=== PATIENT | female | born 2000 | race Caucasian/White ===

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

== ENCOUNTER → 2022-03-25 | Outpatient (CLI) | payer OTHER ==
--- NOTE | 2022-03-25 14:53 | US ---
EXAMINATION TYPE: Transabdominal DATE OF EXAM: 03/25/2022 2:37 PM COMPARISON: NONE CLINICAL HISTORY: Z36.89 ENCOUNTER FOR OTHER SPECIFIED SCR. EXAM MEASUREMENTS: GESTATIONAL AGE / DATING Physician Established: Not yet established Dates by LMP: LMP unknown Dates by First Scan: No previous this is first scan Dates by Current Scan for: (10 weeks/0 days) EDC: 10-21-22 MATERNAL ANATOMY Uterus: 9.0 x 5.6 x 7.5 Right Ovary: 1.8 x 1.1 x 1.2cm Left Ovary: 2.6 x 1.4 x 1.5cm Post CDS / Adnexa: wnl Presence of free fluid: no GESTATION / SURVEY CRL: 3.1cm (10 weeks/0 days) Yolk Sac (normal less than 6mm): 3mm Heart Rate: 176 bpm Rhythm: Normal IUP: Viable IUP Nuchal Translucency 10-14wks (normal less than 3mm): N/A Age Appropriate Anatomy Cord Insertion: Visualized Limbs: Visualized Calvarium: Visualized Date of LMP: unknown Beta HcG (if available): Not available at this time Single live intrauterine gestation. IMPRESSION: Single live intrauterine gestation with estimated gestational age of 10 weeks 0 days and estimated du e date of 10/21/2022.
== END | disposition home or self-care (01) ==
LOC: RADUSWWP 14:02
PROVIDERS: ATTEND Obstetrics & Gynecology
DX: Z36.89 Encounter for other specified antenatal screening (principal); Z3A.10 10 weeks gestation of pregnancy
CPT/HCPCS: 76801

== ENCOUNTER 2022-07-16 22:24 | Outpatient (CLI) | payer OTHER ==
[2022-07-16 23:23] LABS: Appearance,Urine Clear (Clear); Bilirubin,Urine Negative (Negative); Blood,Urine Negative (Negative); Color,Urine Yellow; Glucose,Urine (UA) Negative (Negative); Ketones,Urine Negative (Negative); Leukocyte Esterase,Urine Negative (Negative); Nitrite,Urine Negative (Negative); PH, Urine 7.5 (5.0-8.0); Protein,Urine Negative (Negative); Specific Gravity,Urine 1.014 (1.001-1.035); Urobilinogen,Urine <2.0 mg/dL (<2.0)
[2022-07-16 23:49] VITALS: BP 118/79; PULSE 120; RESP 16; TEMP 98
--- NOTE | 2022-07-31 12:43 | P.MSEPDOC ---
Presenting Problems - Arrival Data Date of Arrival on Unit: 07/16/22 Time of Arrival on Unit: 22:24 Mode of Transport: Ambulatory - Complaint OB-Reason for Admission/Chief Complaint: Pain Comment: [address] Brownlee, 26 5/7 weeks gestation, presents to L7D. with C/O sharp pains from belly button to side and down into pelvis, started this. afternoon around 1600. Patient denies bleeding or loss of fluid, + movement. Patient denies intercourse in last 24 hours Medical History - Information : 1 Para: 0 Term: 0 : 0 Abortions: Spontaneous or Elective: 0 Number of Living Children: 0 - Gestational Age Gestational Age by LESLIE (wks/days): 26 Weeks and 5 Days Review of Systems - Review of Systems Constitutional: No problems Breast: No problems ENT: No problems Cardiovascular: No problems Respiratory: No problems Gastrointestinal: No problems Genitourinary: No problems Musculoskeletal: No problems Neurological: No problems Skin: No problems Vital Signs - Temperature Temperature: 98.0 F Temperature Source: Oral - Pulse Right Sitting Pulse Rate: 120 Pulse Assessment Method: Pulse Oximetry - Respirations Respiratory Rate: 16 Oxygen Delivery Method: Room Air O2 Sat by Pulse Oximetry: 97 - Blood Pressure Right Arm Sitting Blood Pressure: 118/79 Blood Pressure Mean: 92 Blood Pressure Source: Automatic Cuff Medical Screen Scoring - Cervical Exam Membranes: Intact - Uterine Contractions Intensity: Absent Resting: Soft to palpation - Assessment - Baby A Baseline FHR: 130 Heart Rate - NICHD Category: Category I (Normal) Physician Notification - Physician Notified Physician Notified Date: 07/16/22 Physician Notified Time: 22:44 Physician: Laine Bruno New Order Received: Yes - Notification Comment Comment: Called Dr Bruno report of arrival of Erlinda García [address] Brownlee, 26. 5/7 weeks gestation, presents to L&D with C/O sharp pains from belly button to side and. down into pelvis, started around 1600. Pt states pain of 5 initially and now 8. Abdomin. is soft to palpation. Patient denies bleeding or loss of fluid, + movement. Patient denies intercourse in last 24 hours. Orders received for PO hydration, obtain. UA, remove US, Call results. Maternal Triage Index - Maternal Triage Index Presenting for scheduled procedure w/no complaint: No - Stat/Priority 1 Stat Priority 1: No - Urgent/Priority 2 Urgent Priority 2: No - Prompt/Priority 3 Prompt Priority 3: No - Non-Urgent/Priority 4 Non-Urgent Priority 4: Yes Criteria Met for Priority 4: [address] Brownlee, 26 5/7 weeks gestation, presents to L7D. with C/O sharp pains from belly button to side and down into pelvis, started this. afternoon around 1600. Patient denies bleeding or loss of fluid, + movement. Patient denies intercourse in last 24 hours Disposition - Disposition OB Disposition: Discharge to home, Written follow up instructions reviewed Discharge Date: 07/16/22 Discharge Time: 23:30 I agree with the RN Medical Screening Exam: Yes Case reviewed; plan agreed upon as documented in EMR&OBIX.: Yes Diagnosis: PAIN, UNSPECIFIED
== END 2022-07-16 23:30 | disposition home or self-care (01) ==
LOC: FBPOP 22:24
PROVIDERS: ATTEND Obstetrics & Gynecology
DX: R10.30 Lower abdominal pain, unspecified (principal); O26.892 Other specified pregnancy related conditions, second trimester; Z3A.26 26 weeks gestation of pregnancy
CPT/HCPCS: 81003; G0463; 99213

== ENCOUNTER 2022-09-20 23:16 | Outpatient (CLI) | payer OTHER ==
[2022-09-21 01:14] VITALS: BP 113/72; PULSE 112; RESP 16; TEMP 97.7
--- NOTE | 2022-09-21 07:48 | P.MSEPDOC ---
Presenting Problems - Arrival Data Date of Arrival on Unit: 09/20/22 Time of Arrival on Unit: 23:16 Mode of Transport: Wheelchair - Complaint OB-Reason for Admission/Chief Complaint: Possible Onset of Labor Comment: Pt presents to triage with c/o contx that started around 1400 and are 10-15. minutes apart. Pt is rating contx pain 6 to 7 out of 10. Pt unsure of her water broke. Medical History - Information : 1 Para: 0 Term: 0 : 0 Abortions: Spontaneous or Elective: 0 Number of Living Children: 0 - Gestational Age Gestational Age by LESLIE (wks/days): 36 Weeks and 2 Days - History Complications: GDM Review of Systems - Review of Systems Constitutional: No problems Breast: No problems ENT: No problems Cardiovascular: No problems Respiratory: No problems Gastrointestinal: No problems Genitourinary: No problems Musculoskeletal: No problems Neurological: No problems Skin: No problems Vital Signs - Temperature Temperature: 97.7 F Temperature Source: Temporal Artery Scan - Pulse Pulse Oximetery Pulse Rate: 112 Pulse Assessment Method: Pulse Oximetry - Respirations Respiratory Rate: 16 Oxygen Delivery Method: Room Air O2 Sat by Pulse Oximetry: 98 - Blood Pressure Right Arm Blood Pressure: 113/72 Blood Pressure Mean: 85 Blood Pressure Source: Automatic Cuff Medical Screen Scoring - Cervical Exam Effacement (%): 60 Station: -3 Membranes: Intact - Uterine Contractions Frequency From (mins): 5 Frequency To (mins): 6 Duration From (seconds): 60 Duration To (seconds): 80 Intensity: Mild Resting: Soft to palpation - Assessment - Baby A Baseline FHR: 125 Heart Rate - NICHD Category: Category I (Normal) NST: Reactive Physician Notification - Physician Notified Physician Notified Date: 09/21/22 Physician Notified Time: 00:50 Physician: Francy Brownlee Order Received: Yes - Notification Comment Comment: Dr. Brownlee given report on maternal status, c/o contractions every 10-15 minutes. since 1400, G/P, GA, vital signs, Cat 1 FHT, reactive NST, negative amnisure,. contraction pattern, cervical exam not changed after 1 hour. Orders to discharge pt home. with instructions for rest and hydrate, keep next scheduled appointment. Maternal Triage Index - Maternal Triage Index Presenting for scheduled procedure w/no complaint: No - Stat/Priority 1 Stat Priority 1: No - Urgent/Priority 2 Urgent Priority 2: No - Prompt/Priority 3 Prompt Priority 3: No - Non-Urgent/Priority 4 Non-Urgent Priority 4: Yes Criteria Met for Priority 4: Pt presents to triage with c/o contx that started around 1400 and are 10-15. minutes apart. Pt is rating contx pain 6 to 7 out of 10. Pt is unsure if water broke. Disposition - Disposition OB Disposition: Discharge to home, Written follow up instructions reviewed Discharge Date: 09/21/22 Discharge Time: 01:00 I agree with the RN Medical Screening Exam: Yes Case reviewed; plan agreed upon as documented in EMR&OBIX.: Yes Diagnosis: FALSE LABOR BEFORE 37 COMPLETED WEEKS OF GEST, THIRD TRI
== END 2022-09-21 01:00 | disposition home or self-care (01) ==
LOC: FBPOP 23:16
PROVIDERS: ATTEND Obstetrics & Gynecology
DX: O47.03 False labor before 37 completed weeks of gestation, third trimester (principal); Z3A.36 36 weeks gestation of pregnancy; O24.425 Gestational diabetes mellitus in childbirth, controlled by oral hypoglycemic drugs; Z79.84 Long term (current) use of oral hypoglycemic drugs
CPT/HCPCS: 59025; 84112; G0463; 99213

== ENCOUNTER 2022-09-25 13:53 | Outpatient (CLI) | payer OTHER ==
[2022-09-25 15:35] VITALS: BP 116/71; PULSE 143; RESP 16; TEMP 97.4
--- NOTE | 2022-09-25 17:36 | P.MSEPDOC ---
Presenting Problems - Arrival Data Date of Arrival on Unit: 09/25/22 Time of Arrival on Unit: 13:53 Mode of Transport: Wheelchair - Complaint OB-Reason for Admission/Chief Complaint: Possible Onset of Labor Medical History - Information : 1 Para: 0 Term: 0 : 0 Abortions: Spontaneous or Elective: 0 Number of Living Children: 0 - Gestational Age Gestational Age by LESLIE (wks/days): 36 Weeks and 6 Days - History Complications: GDM Review of Systems - Review of Systems Constitutional: No problems Breast: No problems ENT: No problems Cardiovascular: No problems Respiratory: No problems Gastrointestinal: No problems Genitourinary: No problems Musculoskeletal: No problems Neurological: No problems Skin: No problems Vital Signs - Temperature Temperature: 97.4 F Temperature Source: Temporal Artery Scan - Pulse Pulse Oximetery Pulse Rate: 143 Pulse Assessment Method: Pulse Oximetry - Respirations Respiratory Rate: 16 Oxygen Delivery Method: Room Air O2 Sat by Pulse Oximetry: 99 - Blood Pressure Right Arm Blood Pressure: 116/71 Blood Pressure Mean: 86 Blood Pressure Source: Automatic Cuff Medical Screen Scoring - Cervical Exam Dilation (cm): 0 Membranes: Intact - Uterine Contractions Intensity: Mild Resting: Soft to palpation - Assessment - Baby A Baseline FHR: 135 Heart Rate - NICHD Category: Category I (Normal) NST: Reactive Physician Notification - Physician Notified Physician Notified Date: 09/25/22 Physician Notified Time: 15:17 Physician: Francy Brownlee Order Received: Yes (d/c) Maternal Triage Index - Prompt/Priority 3 Prompt Priority 3: Yes Criteria Met for Priority 3: reactive nst, irregular contractions, vag exam closed/thick/high. maternal pulse 143 on admission, 112-119 after being in traige for an hour. Disposition - Disposition OB Disposition: Discharge to home Discharge Date: 09/25/22 Discharge Time: 15:29 I agree with the RN Medical Screening Exam: Yes Case reviewed; plan agreed upon as documented in EMR&OBIX.: Yes Diagnosis: FALSE LABOR BEFORE 37 COMPLETED WEEKS OF GEST, THIRD TRI
== END 2022-09-25 15:29 | disposition home or self-care (01) ==
LOC: FBPOP 13:53
PROVIDERS: ATTEND Obstetrics & Gynecology
DX: O47.03 False labor before 37 completed weeks of gestation, third trimester (principal); O24.419 Gestational diabetes mellitus in pregnancy, unspecified control; Z3A.36 36 weeks gestation of pregnancy; Z79.84 Long term (current) use of oral hypoglycemic drugs
CPT/HCPCS: 59025; G0463; 99213

== ENCOUNTER 2022-09-27 20:50 | Outpatient (CLI) | payer OTHER ==
[2022-09-27 22:37] VITALS: BP 122/76; PULSE 115; RESP 16; TEMP 96.8
--- NOTE | 2022-11-09 11:17 | P.MSEPDOC ---
Presenting Problems - Arrival Data Date of Arrival on Unit: 09/27/22 Time of Arrival on Unit: 20:50 Mode of Transport: Wheelchair - Complaint OB-Reason for Admission/Chief Complaint: Possible Onset of Labor Comment: Patient presents to triage with complaints of lower abdominal tightness and back pain. Medical History - Information : 1 Para: 0 Term: 0 : 0 Abortions: Spontaneous or Elective: 0 Number of Living Children: 0 - Gestational Age Gestational Age by LESLIE (wks/days): 37 Weeks and 1 Days - History Complications: GDM Review of Systems - Review of Systems Constitutional: No problems Breast: No problems ENT: No problems Cardiovascular: No problems Respiratory: No problems Gastrointestinal: No problems Genitourinary: No problems Musculoskeletal: No problems Neurological: No problems Skin: No problems Vital Signs - Temperature Temperature: 96.8 F Temperature Source: Temporal Artery Scan - Pulse Pulse Oximetery Pulse Rate: 115 Pulse Assessment Method: Pulse Oximetry - Respirations Respiratory Rate: 16 Oxygen Delivery Method: Room Air O2 Sat by Pulse Oximetry: 97 - Blood Pressure Right Arm Blood Pressure: 122/76 Blood Pressure Mean: 91 Blood Pressure Source: Automatic Cuff Medical Screen Scoring - Cervical Exam Dilation (cm): 0 Membranes: Intact - Assessment - Baby A Baseline FHR: 150 Heart Rate - NICHD Category: Category I (Normal) NST: Reactive Physician Notification - Physician Notified Physician Notified Date: 09/27/22 Physician Notified Time: 21:58 Physician: Laine Bruno Maternal Triage Index - Maternal Triage Index Presenting for scheduled procedure w/no complaint: No - Stat/Priority 1 Stat Priority 1: No - Urgent/Priority 2 Urgent Priority 2: No - Prompt/Priority 3 Prompt Priority 3: No - Non-Urgent/Priority 4 Non-Urgent Priority 4: Yes Criteria Met for Priority 4: Patient presents to triage with complaints of lower abdominal tightness and back pain. Disposition - Disposition OB Disposition: Discharge to home I agree with the RN Medical Screening Exam: Yes Case reviewed; plan agreed upon as documented in EMR&OBIX.: Yes Diagnosis: LOW BACK PAIN, UNSPECIFIED
== END 2022-09-27 22:37 ==
LOC: FBPOP 20:50
PROVIDERS: ATTEND Obstetrics & Gynecology
DX: O26.893 Other specified pregnancy related conditions, third trimester (principal); O24.113 Pre-existing type 2 diabetes mellitus, in pregnancy, third trimester; M54.50 Low back pain, unspecified; Z3A.37 37 weeks gestation of pregnancy; Z91.048 Other nonmedicinal substance allergy status; Z79.84 Long term (current) use of oral hypoglycemic drugs
CPT/HCPCS: 59025; 84112; G0463; 99213

== ENCOUNTER 2022-09-28 19:44 | Outpatient (CLI) | payer OTHER ==
[2022-09-28 20:06] LABS: Glucose,Whole Blood 95 mg/dL (70-110)
[2022-09-28 20:45] VITALS: BP 116/69; PULSE 112; RESP 16; TEMP 97.2
--- NOTE | 2022-11-09 11:18 | P.MSEPDOC ---
Presenting Problems - Arrival Data Date of Arrival on Unit: 09/28/22 Time of Arrival on Unit: 19:44 Mode of Transport: Ambulatory - Complaint OB-Reason for Admission/Chief Complaint: Possible Onset of Labor Comment: pt. present to tirage due to contractions, pt. states they have been going. on all day but increased at 5:30 and then 7:30 for and hour they were 4- 5min apart pt. rating pain 8/10 when they come Medical History - Information : 1 Para: 0 Term: 0 : 0 Abortions: Spontaneous or Elective: 0 Number of Living Children: 0 - Gestational Age Gestational Age by LESLIE (wks/days): 37 Weeks and 2 Days - History Complications: GDM Review of Systems - Review of Systems Constitutional: No problems Breast: No problems ENT: No problems Cardiovascular: No problems Respiratory: No problems Gastrointestinal: No problems Genitourinary: No problems Musculoskeletal: No problems Neurological: No problems Skin: No problems Vital Signs - Temperature Temperature: 97.2 F Temperature Source: Temporal Artery Scan - Pulse Pulse Oximetery Pulse Rate: 112 Pulse Assessment Method: Pulse Oximetry - Respirations Respiratory Rate: 16 Oxygen Delivery Method: Room Air O2 Sat by Pulse Oximetry: 98 - Blood Pressure Right Arm Blood Pressure: 116/69 Blood Pressure Mean: 84 Blood Pressure Source: Automatic Cuff Medical Screen Scoring - Cervical Exam Dilation (cm): 0 - Uterine Contractions Intensity: Mild Resting: Soft to palpation - Assessment - Baby A Baseline FHR: 135 Heart Rate - NICHD Category: Category I (Normal) NST: Reactive Maternal Triage Index - Maternal Triage Index Presenting for scheduled procedure w/no complaint: No - Stat/Priority 1 Stat Priority 1: No - Urgent/Priority 2 Urgent Priority 2: No - Prompt/Priority 3 Prompt Priority 3: No - Non-Urgent/Priority 4 Non-Urgent Priority 4: Yes Criteria Met for Priority 4: 37.2, cervix closed, pt. not feeling any contractions at this time requesting to be discharge home Disposition - Disposition OB Disposition: Discharge to home Discharge Date: 09/28/22 Discharge Time: 20:37 I agree with the RN Medical Screening Exam: Yes Case reviewed; plan agreed upon as documented in EMR&OBIX.: Yes Diagnosis: PRIMARY INADEQUATE CONTRACTIONS
== END 2022-09-28 20:37 | disposition home or self-care (01) ==
LOC: FBPOP 19:44
PROVIDERS: ATTEND Obstetrics & Gynecology
DX: O26.893 Other specified pregnancy related conditions, third trimester (principal); O24.113 Pre-existing type 2 diabetes mellitus, in pregnancy, third trimester; O62.0 Primary inadequate contractions; Z3A.37 37 weeks gestation of pregnancy; Z91.048 Other nonmedicinal substance allergy status; Z79.84 Long term (current) use of oral hypoglycemic drugs
CPT/HCPCS: 59025; 84112; G0463; 99213

== ENCOUNTER → 2022-10-04 | Outpatient (CLI) | payer OTHER ==
[2022-10-05 00:35] VITALS: BP 117/72; PULSE 118; RESP 16; TEMP 98
--- NOTE | 2022-10-05 07:23 | P.MSEPDOC ---
Presenting Problems - Arrival Data Date of Arrival on Unit: 10/04/22 Time of Arrival on Unit: 22:52 Mode of Transport: Wheelchair - Complaint OB-Reason for Admission/Chief Complaint: Possible Onset of Labor, Rule Out SROM, Decreased Movement Comment: Patient of Dr. Brownlee presents to triage with. contractions 5min apart, and decreased . movement. She is a GA 38.1, LESLIE 10/17/22. Unsure. of fluid leaking, denies bleeding, states she hasn't. been feeling baby move much today. Patient. complications include gestational diabetes and sees. MFM as well as weekly Dr. visits with Dr. Brownlee. Medical History - Information : 1 Para: 0 Term: 0 : 0 Abortions: Spontaneous or Elective: 0 Number of Living Children: 0 - Gestational Age Gestational Age by LESLIE (wks/days): 38 Weeks and 2 Days - History Complications: GDM Comment: Takes Metformin for GDM, checks blood glucose 4x's day. Review of Systems - Review of Systems Constitutional: No problems Breast: No problems ENT: No problems Cardiovascular: No problems Respiratory: No problems Gastrointestinal: No problems Genitourinary: No problems Musculoskeletal: No problems Neurological: No problems Skin: No problems Vital Signs - Temperature Temperature: 98 F Temperature Source: Temporal Artery Scan - Pulse Pulse Oximetery Pulse Rate: 118 Pulse Assessment Method: Pulse Oximetry - Respirations Respiratory Rate: 16 Oxygen Delivery Method: Room Air O2 Sat by Pulse Oximetry: 98 - Blood Pressure Right Arm Blood Pressure: 117/72 Blood Pressure Mean: 87 Blood Pressure Source: Automatic Cuff Medical Screen Scoring - Cervical Exam Dilation (cm): 0 Effacement (%): 0 Station: -2 Membranes: Intact - Uterine Contractions Frequency From (mins): 5 Frequency To (mins): 9 Duration From (seconds): 70 Duration To (seconds): 90 Intensity: Mild Resting: Soft to palpation - Assessment - Baby A Baseline FHR: 120 Heart Rate - NICHD Category: Category I (Normal) NST: Reactive Physician Notification - Physician Notified Physician Notified Date: 10/05/22 Physician Notified Time: 00:14 Physician: Silvano Pacheco New Order Received: Yes - Notification Comment Comment: Paged and had call back from Dr. Pacheco. Patient of Dr. Brownlee, , LESLIE 10/17/22, GA 38.1. Amnisure negative, Cervix closed/thick/-2. NST. reactive. Contractions 5-9 min. Orders to send home. with discharge instructions. Maternal Triage Index - Maternal Triage Index Presenting for scheduled procedure w/no complaint: No - Stat/Priority 1 Stat Priority 1: No - Urgent/Priority 2 Urgent Priority 2: No - Prompt/Priority 3 Prompt Priority 3: No - Non-Urgent/Priority 4 Non-Urgent Priority 4: Yes Criteria Met for Priority 4: >37 weeks, early labor signs of contractions, possible SROM, common discomforts of and decreased movement. Disposition - Disposition OB Disposition: Discharge to home Discharge Date: 10/05/22 Discharge Time: 00:15 I agree with the RN Medical Screening Exam: Yes Case reviewed; plan agreed upon as documented in EMR&OBIX.: Yes Diagnosis: FALSE LABOR AT OR AFTER 37 COMPLETED WEEKS OF GESTATION (Patient presents to labor and delivery with complaints of contractions and decreased movement. Patient's heart tones are category 1. Cervix remains closed and thick. Patient is feeling movement while on the unit. This time there is no evidence of labor, and no evidence of maternal or compromise. Plan is to discharge home follow up with Dr. Burleson as scheduled)
== END ==
LOC: FBPOP 22:52
PROVIDERS: ATTEND Obstetrics & Gynecology
DX: O47.1 False labor at or after 37 completed weeks of gestation (principal); O24.415 Gestational diabetes mellitus in pregnancy, controlled by oral hypoglycemic drugs; Z3A.38 38 weeks gestation of pregnancy; Z91.048 Other nonmedicinal substance allergy status; Z79.84 Long term (current) use of oral hypoglycemic drugs
CPT/HCPCS: 59025; 84112; G0463; 99213

== ENCOUNTER 2022-10-06 01:57 | Inpatient (IN) | payer OTHER ==
[2022-10-06] MEDS ORDERED: CARBOPROST TROMETHAMINE 250 MCG/ML 1 ML AMP IM PRN ×2 (02:16→17:55)
[2022-10-06] MEDS ORDERED: METHYLERGONOVINE 0.2 MG/ML 1 ML AMP IM PRN ×2 (02:16→17:55)
[2022-10-06] MEDS ORDERED: LIDOCAINE 0.5% (PF) 5 MG/ML (50 ML SDV) SQ PRN (02:16)
[2022-10-06] MEDS ORDERED: TRANEXAMIC ACID IN NACL,ISO-OS 1,000 MG in EMPTY BAG 1 BAG IV PRN ×2 (02:16→17:55)
[2022-10-06] MEDS ORDERED: TERBUTALINE 1 MG/ML VIAL SQ PRN (02:16)
[2022-10-06] MEDS ORDERED: OXYTOCIN 10 UNIT/ML 1 ML VIAL IM PRN ×2 (02:16→17:55)
[2022-10-06] MEDS ORDERED: miSOPROStoL 200 MCG TAB PO PRN ×2 (02:16→17:55)
[2022-10-06] MEDS ORDERED: OXYTOCIN 30 UNITS/500 ML NS 30 UNIT in SALINE 1 500ML.BAG IV SCH ×2 (02:30→19:30)
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
[2022-10-06 02:33] LABS: Glucose,Whole Blood 102 mg/dL (70-110)
[2022-10-06 03:02] LABS: Anisocytosis Slight; Basophils % (A) 0 %; Eosinophils # (A) 0.2 k/uL (0-0.7); Eosinophils % (A) 2 %; HGB 7.4 gm/dL (11.4-16.0); Hypochromasia Marked; Lymphocytes # (A) 2.3 k/uL (1.0-4.8); Lymphocytes % (A) 21 %; MCH 19.7 pg (25.0-35.0); MCHC 30.8 g/dL (31.0-37.0); Mean Platelet Volume 8.3; Microcytosis Marked; Monocytes # (A) 0.8 k/uL (0-1.0); Monocytes % (A) 7 %; Neutrophils # (A) 7.5 k/uL (1.3-7.7); Neutrophils % (A) 68 %; Platelet Count 365 k/uL (150-450); Poikilocytosis Marked; RBC 3.75 m/uL (3.80-5.40); RDW 18.1 % (11.5-15.5); WBC 11.1 k/uL (4.0-11.0)
[2022-10-06] MEDS: LACTATED RINGERS 1,000 ML IV SCH ×3 (03:33→13:49)
[2022-10-06 08:16] LABS: Glucose,Whole Blood 89 mg/dL (70-110)
[2022-10-06] MEDS ORDERED: BUTORPHANOL 2 MG/ML 1 ML VIAL IV PRN ×2 (09:45→10:08)
[2022-10-06] MEDS ORDERED: BUTORPHANOL 1 MG/ML 1 ML VIAL IV PRN ×2 (10:09→10:11)
[2022-10-06] MEDS ORDERED: SODIUM CHLORIDE 0.9% 100 ML BAG ONE (13:34)
[2022-10-06] MEDS ORDERED: ROPIVACAINE 5 MG/ML 20 ML AMPULE ONE (13:34)
[2022-10-06] MEDS ORDERED: fentaNYL (PF) 50 MCG/ML 5 ML AMP ONE (13:34)
[2022-10-06 13:58] LABS: Glucose,Whole Blood 86 mg/dL (70-110)
[2022-10-06] MEDS ORDERED: AMPICILLIN 2,000 MG in SODIUM CHLORIDE 0.9% 100 ML IVPB ONE (14:00)
[2022-10-06] MEDS ORDERED: CITRIC ACID-SODIUM CITRATE 15 ML CUP PO ONE (17:55)
--- NOTE | 2022-10-06 17:59 | P.PN ---
Progress Note - Text Progress Note Date: 10/06/22 Patient's cervix is 3 cm dilated. heart tones are category 1. Pitocin is now over 30 milliunits and despite 16 hours of labor augmentation she is not made any significant change throughout the day. I discussed with the patient and her family in regards to continue with this induction versus delivery by section. Patient at this time is requesting section. I believe this is appropriate given the prolonged labor and rupture without significant progress. I did discuss the benefits and risks of this procedure including risks of infection, bleeding, possible injury bowel, bladder, vessels, and/or other organs. All the patient's questions are answered and a written consent is obtained.
[2022-10-06] MEDS ORDERED: AMPICILLIN 1,000 MG in SODIUM CHLORIDE 0.9% 50 ML IVPB SCH (18:00)
[2022-10-06] MEDS ORDERED: OXYTOCIN 30 UNITS/500 ML NS BAG IV ONE (18:21)
[2022-10-06] MEDS ORDERED: MORPHINE SULFATE (PF) 0.3 MG/0.3 ML SYR ONE (18:21)
[2022-10-06] MEDS ORDERED: ONDANSETRON 4 MG/2 ML VIAL ONE (18:21)
[2022-10-06] MEDS ORDERED: OXYTOCIN 10 UNIT/ML 1 ML VIAL ONE (18:21)
[2022-10-06] MEDS ORDERED: NALBUPHINE 10 MG/ML (10 ML MDV) ONE (18:21)
[2022-10-06] MEDS ORDERED: fentaNYL (PF) 50 MCG/ML 2 ML AMP ONE (18:21)
[2022-10-06] MEDS ORDERED: KETOROLAC 15 MG/ML 1 ML VIAL ONE (18:21)
[2022-10-06] MEDS ORDERED: METHYLERGONOVINE 0.2 MG/ML 1 ML AMP ONE (18:21)
[2022-10-06] MEDS ORDERED: diphenhydrAMINE 25 MG CAP PO PRN (19:29)
[2022-10-06] MEDS ORDERED: LANOLIN CREAM 5 GM TUBE TOPICAL PRN (19:29)
[2022-10-06] MEDS ORDERED: METOCLOPRAMIDE 5 MG/ML 2 ML VIAL IVP PRN (19:29)
[2022-10-06] MEDS ORDERED: SIMETHICONE 80 MG CHEWABLE PO PRN (19:29)
[2022-10-06] MEDS ORDERED: ONDANSETRON 4 MG/2 ML VIAL IVP PRN (19:29)
[2022-10-06] MEDS ORDERED: diphenhydrAMINE 50 MG/ML 1 ML VIAL IVP PRN (19:29)
[2022-10-06] MEDS ORDERED: ZOLPIDEM 5 MG TAB PO PRN (19:29)
[2022-10-06] MEDS ORDERED: NALOXONE 0.4 MG/ML 1 ML VIAL IV PRN (19:29)
--- NOTE | 2022-10-06 20:06 | P.OP ---
Date of Procedure: 10/06/22 Preoperative Diagnosis: #1: 38-3/7 week intrauterine . #2: Premature rupture membranes #3: Failure to progress in labor #4: Chronic anemia (severe) Postoperative Diagnosis: #1: Same. #2: Occiput transverse presentation Procedure(s) Performed: Primary low transverse section Anesthesia: epidural Surgeon: Silvano Pacheco Savings Counselor #1: Erick Gonzalez Estimated Blood Loss (ml): 1,400 Pathology: other (Placenta) Condition: stable Disposition: floor Indications for Procedure: Please see dictated H&P for intimate details of this patient's admission. In brief summary this is a 21-year-old 1 para 0 female estimated gestational age 38-3/7 weeks who presents to labor and delivery with complaints of leaking of fluid found to have gross rupture membranes and no cervical dilation. Patient has Pitocin induction of labor and despite approximately 16 hours of labor in over 30 milliunits of Pitocin she does not progress beyond 3 cm dilated. I did discuss options with the patient including continued labor versus delivery by section. After patient centered huddle, it was our clinical recommendation proceed with section. I did discuss the procedure and risks with the patient including risks of infection, bleeding, possible injury bowel, bladder, vessels, and/or other organs. We also discussed risk of DVT and pulmonary embolism. All the patient's questions are answered and a written consent was obtained. Operative Findings: This is a vigorous viable female infant Apgars 9 and 9 delivery time is 1834 hrs. Infant grossly appeared normal. The uterus, tubes, ovaries appear normal as well. Description of Procedure: This patient has a Mora catheter placed to straight drain. She is subsequently taken to the operating room where the epidural is dosed up for sufficient level of surgery. With an adequate level of anesthesia the appropriate timeout is done. She has abdominal prep and drape. Scalpels and taken Pfannenstiel skin incision is then made. A second scalpel is taken down the fascia and the fascia scored with scalpel. Fascial incision extended bilaterally using the Lawrence scissors. Fascia is dissected sharply off the rectus muscles. Rectus muscles are the peritoneum identified and entered sharply. Peritoneal incision extended superior and inferior without difficulty. Bladder blade is then placed. Bladder peritoneum was taken sharply off the lower uterine segment. Scalpel is then taken and a low transverse uterine incision is then made. Using a hemostat I enter the uterine cavity bluntly was a loss of clear f luid. The uterine incision extended bluntly. The 's head is then gently guided through the incision with fundal pressure. Mouth and nares are bulb suctioned. There is no evidence of a nuchal cord. The infant's head is occiput transverse presentation. With more fundal pressure with delivery the rest of this infant's body. This is a vigorous viable female infant Apgars 9 and 9 delivery time is 1834 hrs. After delivery of the the umbilical cord is doubly clamped and cut. The placenta is then manually extracted intact. All tissue is removed from the uterus. Uterus is then externalized. There is a brisk bleeding from the left side of the incision and immediately a Fung clamp was placed at this area. The rest the incision is also demarcated with Fung clamps. The the bleeding on the left side is controlled with 0 Vicryl running locked stitches. Rest of the incision is then closed using 0 Vicryl running locked fashion 2 layers. This time good hemostasis is noted. Bladder peritoneum was then reapproximated using a 3-0 Vicryl. Excess fluid is removed from the abdomen and pelvis. Uterus, tubes, ovaries appear normal for term gestation. Uterus placed back into the abdomen. The parietal peritoneum was then identified and closed using 0 Vicryl running fashion. Rectus muscles reapproximated in 0 Vicryl interrupted fashion. Fascia is then closed using 0 PDS. Subcutaneous tissues and closed using a 3-0 Vicryl. Skin is and closed using janak. All counts are correct 3. There are no complications. Estimated blood loss was 1400 mL due to the bleeding from the left side and patient did have some mild atony therefore was given a dose of Methergine and 10 units of Pitocin IV. Of note patient's hemoglobin prior to surgery was 7.4 therefore we'll watch her closely and repeat a CBC in the morning.
[2022-10-06] MEDS: SENNOSIDES-DOCUSATE SODIUM 1 EACH TAB PO SCH (20:54)
[2022-10-06] MEDS: ACETAMINOPHEN TAB 500 MG TAB PO SCH (21:34)
[2022-10-06] MEDS: METHYLERGONOVINE 0.2 MG TAB PO SCH (22:55)
[2022-10-07] MEDS: LACTATED RINGERS 1,000 ML IV SCH ×3 (00:39→14:00)
[2022-10-07] MEDS: IBUPROFEN 600 MG TAB PO SCH ×4 (00:40→20:12)
[2022-10-07] MEDS: KETOROLAC 15 MG/ML 1 ML VIAL IVP SCH ×3 (02:11→19:31)
[2022-10-07] MEDS: ACETAMINOPHEN TAB 500 MG TAB PO SCH ×3 (06:29→16:25)
[2022-10-07] MEDS: FERROUS SULFATE 325 MG TAB PO SCH ×2 (06:29→17:42)
[2022-10-07] MEDS: METHYLERGONOVINE 0.2 MG TAB PO SCH ×2 (06:30→16:05)
[2022-10-07] MEDS: SENNOSIDES-DOCUSATE SODIUM 1 EACH TAB PO SCH ×2 (07:32→20:13)
[2022-10-07 08:23] LABS: Anisocytosis Slight; Basophils % (A) 0 %; Eosinophils # (A) 0.1 k/uL (0-0.7); Eosinophils % (A) 0 %; Hypochromasia Marked; Lymphocytes # (A) 1.7 k/uL (1.0-4.8); Lymphocytes % (A) 12 %; MCH 18.6 pg (25.0-35.0); MCV 63.9 fL (80.0-100.0); Microcytosis Marked; Monocytes # (A) 1.1 k/uL (0-1.0); Monocytes % (A) 8 %; Neutrophils # (A) 10.9 k/uL (1.3-7.7); Neutrophils % (A) 78 %; Platelet Count 246 k/uL (150-450); Poikilocytosis Marked; RBC 2.66 m/uL (3.80-5.40); RDW 18.3 % (11.5-15.5); WBC 14.1 k/uL (4.0-11.0)
[2022-10-07 08:24] LABS: HGB 4.9 gm/dL (11.4-16.0)
--- NOTE | 2022-10-07 08:51 | P.PNOBGPC ---
Subjective - Subjective Principal diagnosis: Status post primary section postoperative day #1 Interval history: Patient is doing okay. She has not tried ambulate yet. She is feeling some gurgling but no flatus yet. Her pain is fairly well controlled at this time. She denies any current shortness of breath or dizziness. She does notice some ringing in her ears with movement. Patient reports: Reports appetite normal, Reports voiding normally, Reports pain well controlled, Denies ambulating normally : doing well Objective - Vital Signs Latest vital signs: Vital Signs Temp Pulse Resp BP Pulse Ox 10/07/22 08:00 98.4 F 116 H 16 109/75 97 10/07/22 04:00 98.8 F 112 H 16 110/72 10/07/22 00:00 98.4 F 112 H 16 128/69 100 10/06/22 21:09 98.8 F 117 H 16 112/77 97 10/06/22 20:39 98 16 118/85 97 10/06/22 20:09 105 H 16 124/86 98 10/06/22 19:54 107 H 16 119/84 98 10/06/22 19:39 98.2 F 100 16 121/81 98 10/06/22 19:24 124 H 16 99 10/06/22 19:09 125 H 16 130/80 100 Intake and Output 10/06/22 10/07/22 10/07/22 22:59 06:59 14:59 Intake Total 800 Output Total 375 150 Balance -375 650 Intake: IV 600 Oral 200 Output: Urine 375 150 Uretheral (Mora) 250 150 Other: Voiding Method Indwelling Catheter - Exam Extremities: Present: normal. Absent: tenderness Abdomen: Present: normal appearance, soft (Positive bowel sounds 4). Absent: distention, tenderness Incision: Present: normal, dry, intact. Absent: erythematous Uterus: Present: normal, firm. Absent: tenderness - Labs Labs: Abnormal Lab Results - Last 24 Hours (Table) 10/06/22 10/07/22 Range/Units 02:45 07:45 WBC 14.1 H (4.0-11.0) k/uL RBC 2.66 L (3.80-5.40) m/uL Hgb 4.9 L* D (11.4-16.0) gm/dL Hct 17.0 L* (34.0-46.0) % MCV 63.9 L (80.0-100.0) fL MCH 18.6 L (25.0-35.0) pg MCHC 29.0 L (31.0-37.0) g/dL RDW 18.3 H (11.5-15.5) % Neutrophils # 10.9 H (1.3-7.7) k/uL Monocytes # 1.1 H (0-1.0) k/uL Crossmatch See Detail Assessment and Plan Assessment: Status post primary low transverse section postoperative day #1 Chronic anemia with acute blood loss anemia Plan: Will transfuse 2 units of blood this morning. Patient was counseled regarding blood transfusion and the need for this. Patient states she was on iron prior to but stopped taking them when she did find out she was . Will recheck CBC a few hours after the last unit. Will also repeat again in the morning. Will not ambulate without assistance.
[2022-10-07 16:37] LABS: Anisocytosis Moderate; HCT 25.9 % (34.0-46.0); Hypochromasia Marked; MCH 23.3 pg (25.0-35.0); MCHC 32.7 g/dL (31.0-37.0); Mean Platelet Volume 9.6; Microcytosis Marked; Platelet Count 266 k/uL (150-450); Poikilocytosis Marked; RBC 3.65 m/uL (3.80-5.40); RDW 21.6 % (11.5-15.5)
[2022-10-07 16:54] LABS: HGB 8.5 gm/dL (11.4-16.0)
[2022-10-07 16:55] LABS: MCV 71.1 fL (80.0-100.0)
[2022-10-07 17:14] LABS: Lymphocytes # (M) 1.49 k/uL (1.0-4.8); Metamyelocytes # (M) 0.17 k/uL (0); Metamyelocytes % 1 %; Monocytes # (M) 0.66 k/uL (0-1.0); Neutrophils # (M) 14.19 k/uL (1.3-7.7); Neutrophils % (M) 86 %; Nucleated Red Blood Cells 4 /100 WBC (0-0); Total Cells Counted 100; WBC 16.5 k/uL (4.0-11.0)
[2022-10-08 01:37] VITALS: RESP 16
[2022-10-08] MEDS: IBUPROFEN 600 MG TAB PO SCH ×2 (02:04→07:56)
[2022-10-08] MEDS: ACETAMINOPHEN TAB 500 MG TAB PO SCH ×3 (03:07→10:30)
[2022-10-08] MEDS: KETOROLAC 15 MG/ML 1 ML VIAL IVP SCH ×2 (03:08→07:13)
--- NOTE | 2022-10-08 06:35 | P.MSEPDOC ---
Presenting Problems - Arrival Data Date of Arrival on Unit: 10/06/22 Time of Arrival on Unit: 01:57 Mode of Transport: Wheelchair - Complaint OB-Reason for Admission/Chief Complaint: Possible Onset of Labor, Rule Out SROM Comment: pt presents to tr with c/o SROM clear fluid at about 0130. pt states she's GDM,. on metformin once a day. last accu check was after dinner, and it was 116 Medical History - Information : 1 Para: 0 Term: 0 : 0 Abortions: Spontaneous or Elective: 0 Number of Living Children: 0 - Gestational Age Gestational Age by LESLIE (wks/days): 38 Weeks and 3 Days - History Complications: GDM Review of Systems - Review of Systems Constitutional: No problems Breast: No problems ENT: No problems Cardiovascular: No problems Respiratory: No problems Gastrointestinal: No problems Genitourinary: No problems Musculoskeletal: No problems Neurological: No problems Skin: No problems Vital Signs - Temperature Temperature: 97.9 F Temperature Source: Oral - Pulse Pulse Oximetery Pulse Rate: 93 Pulse Assessment Method: Pulse Oximetry - Respirations Respiratory Rate: 16 Oxygen Delivery Method: Room Air O2 Sat by Pulse Oximetry: 94 - Blood Pressure Right Arm Blood Pressure: 98/65 Blood Pressure Mean: 76 Blood Pressure Source: Automatic Cuff Medical Screen Scoring - Cervical Exam Dilation (cm): 0 Effacement (%): 0 Station: -2 Membranes: Ruptured - Uterine Contractions Intensity: Mild Resting: Soft to palpation - Assessment - Baby A Baseline FHR: 134 Heart Rate - NICHD Category: Category I (Normal) NST: Reactive Physician Notification - Physician Notified New Order Received: Yes - Notification Comment Comment: orders received to obtain cbc in am Maternal Triage Index - Maternal Triage Index Presenting for scheduled procedure w/no complaint: No - Stat/Priority 1 Stat Priority 1: No - Urgent/Priority 2 Urgent Priority 2: No - Prompt/Priority 3 Prompt Priority 3: Yes Criteria Met for Priority 3: >34 weeks SROM Disposition - Disposition OB Disposition: Admit, LDRP Suite Transferred to:: Suite 11 I agree with the RN Medical Screening Exam: Yes Case reviewed; plan agreed upon as documented in EMR&OBIX.: Yes Diagnosis: ENCOUNTER FOR FULL-TERM UNCOMPLICATED DELIVERY
--- NOTE | 2022-10-08 06:49 | P.PN ---
Progress Note - Text Progress Note Date: 10/08/22 Postoperative day 2 status post section under spinal anesthesia, and i ntrathecal morphine given for postoperative analgesia, patient doing well, there is no anesthesia related complications, Patient had no headache, vital signs stable , Assessment and plan= postop day 2 status post , doing well there is no anesthesia related complication.
[2022-10-08 07:06] LABS: Anisocytosis Moderate; HCT 23.5 % (34.0-46.0); HGB 7.5 gm/dL (11.4-16.0); Hypochromasia Marked; MCH 22.6 pg (25.0-35.0); MCHC 31.9 g/dL (31.0-37.0); Mean Platelet Volume 9.1; Microcytosis Marked; Platelet Count 230 k/uL (150-450); Poikilocytosis Marked; RBC 3.31 m/uL (3.80-5.40); RDW 21.8 % (11.5-15.5); WBC 15.7 k/uL (4.0-11.0)
[2022-10-08 07:53] LABS: Eosinophils # (M) 0.16 k/uL (0-0.7); Lymphocytes # (M) 2.67 k/uL (1.0-4.8); Monocytes # (M) 0.63 k/uL (0-1.0); Neutrophils # (M) 12.25 k/uL (1.3-7.7); Neutrophils % (M) 78 %; Nucleated Red Blood Cells 0 /100 WBC (0-0); Total Cells Counted 100
[2022-10-08 07:54] VITALS: BP 109/75; PULSE 88; TEMP 97.8
[2022-10-08] MEDS: FERROUS SULFATE 325 MG TAB PO SCH (07:56)
[2022-10-08 07:59] LABS: Polychromasia Present
[2022-10-08] MEDS: SENNOSIDES-DOCUSATE SODIUM 1 EACH TAB PO SCH (08:02)
--- NOTE | 2022-10-08 08:48 | P.DS ---
Providers Date of admission: 10/06/22 02:14 Expected date of discharge: 10/08/22 Attending physician: Francy Brownlee Primary care physician: Stated None Hospital Course: This is a 21-year-old female 1 para 0 at 38-3/7 weeks who presented with spontaneous rupture of membranes. She did not make progress for over 17 hours and therefore underwent a primary low transverse section on 10/06/2022. She did have increased bleeding from a blood vessel on the side of her uterus during surgery and did have a large amount of blood loss during surgery. , her hemoglobin did drop to 4.9. She was given 2 units of blood and currently is a 7.5. Her starting hemoglobin was only 7.4. She did have a history of gestational diabetes that was fairly well controlled. Post operatively on postoperative day #1, she was feeling ringing in her ears and some dizziness. She did receive 2 units of blood and now is ambulating and has passed flatus and bowel movement. She is breast-feeding. Pain is fairly well controlled right now. Vital signs are stable. Abdomen is soft with positive bowel sounds 4. Incision is clean dry and intact with janak in place. Extremities show negative Homans. Impression is status post primary low transverse section postoperative day #2, acute blood loss anemia in a background of chronic anemia, gestational diabetes. Plan is to discharge home today. Routine postoperative and instructions are given. She will be given a prescription for ibuprofen 600 mg every 6 hours as needed for pain. She will alternate with Tylenol as needed. She will also be given a few oxycodone to use as needed for severe pain. She has been counseled regarding opioid use and has signed a consent form. She will continue seeing her counselor for anxiety issues. She is currently on no medication for this. She is advised to call the office if she has any further questions or concerns prior to her appointment time. Procedures: Oxytocin augmentation of labor Primary low transverse section for delivery of a viable female on 10/06/2022 Patient Condition at Discharge: Stable Plan - Discharge Summary New Discharge Prescriptions: New Ibuprofen [Motrin] 600 mg PO Q6H #60 tab oxyCODONE HCL [OxyIR] 5 mg PO Q6HR PRN #12 tab PRN Reason: Pain Scale 4 - 6 Ferrous Sulfate [Iron (65 MG Elemental)] 325 mg PO BID-W/MEALS 30 Days #60 tab Continue Famotidine [Pepcid] 1 tab PO DAILY Vit No.179/Iron/Folic [ Tablet] 1 tablet PO DAILY No Action metFORMIN HCL 1 tablet PO DAILY Discharge Medication List Vit No.179/Iron/Folic [ Tablet] 1 tablet PO DAILY 07/16/22 [History] metFORMIN HCL 1 tablet PO DAILY 09/20/22 [History] Famotidine [Pepcid] 1 tab PO DAILY 09/25/22 [History] Ferrous Sulfate [Iron (65 MG Elemental)] 325 mg PO BID-W/MEALS 30 Days #60 tab 10/08/22 [Rx] Ibuprofen [Motrin] 600 mg PO Q6H #60 tab 10/08/22 [Rx] oxyCODONE HCL [OxyIR] 5 mg PO Q6HR PRN #12 tab 10/08/22 [Rx] Follow up Appointment(s)/Referral(s): Francy Brownlee DO [Doctor of Osteopathic Medicine] - 11/19/22 3:45 pm (First follow up set for ThursdayOctober 15 at 1:30pm) Activity/Diet/Wound Care/Special Instructions: Instructions 1. Do not begin any exercise program for 3 weeks. 2. Do not resume sexual relations for 3 weeks or longer if uncomfortable. 3. You may take tub baths or showers at any time. 4. You may use tampons if desired after 3 weeks. 5. Keep the area of episiotomy (stitches) clean and dry. 6. If you are not nursing, wear a good fitting, supportive bra during the day and limit fluid intake for at least 1 week to prevent breast engorgement. 7. Call the office, [phone], within the next week to make appointment for your 6 week checkup if it has not already been made. 8. Report any of the following occurrences to the doctor promptly: a. Heavy, excessive bleeding b. Chills, fever c. Burning or frequency of urination d. Pain or redness and breasts if nursing e. Increasing pain or swelling in episiotomy (stitches). In addition to the above instructions, the following additional should be followed: 1. No heavy lifting or straining (exercising) until after 6 week checkup. 2. Keep abdominal incision clean and dry: You may wear a dressing if more comfortable. 3. Make office appointment for 10 days after going home or as instructed by her doctor. Discharge Disposition: HOME SELF-CARE
== END 2022-10-08 13:15 | disposition home or self-care (01) | DRG 540 ==
LOC: FBPOP 01:57 → 4FBP 02:14
PROVIDERS: ADMIT Obstetrics & Gynecology; ATTEND Obstetrics & Gynecology
PROC: 10D00Z1 Extraction of Products of Conception, Low, Open Approach (ICD-10-PCS; principal; 2022-10-06 18:20)
DX: O24.429 Gestational diabetes mellitus in childbirth, unspecified control (principal); F32.A Depression, unspecified; F43.10 Post-traumatic stress disorder, unspecified; M41.9 Scoliosis, unspecified; O32.2XX0 Maternal care for transverse and oblique lie, not applicable or unspecified; O42.92 Full-term premature rupture of membranes, unspecified as to length of time between rupture and onset of labor; O62.2 Other uterine inertia; O63.9 Long labor, unspecified; O99.02 Anemia complicating childbirth; O99.344 Other mental disorders complicating childbirth; Z37.0 Single live birth; Z3A.38 38 weeks gestation of pregnancy; Z91.410 Personal history of adult physical and sexual abuse
CPT/HCPCS: 59025; 83036; 84112; 85025; 86850; 86900; 86901; 86920; 99213

== ENCOUNTER 2023-12-22 15:07 | Emergency (ER) | payer OTHER ==
[2023-12-22] MEDS ORDERED: SODIUM CHLORIDE 0.9% 1,000 ML BAG ONE (17:20)
--- NOTE | 2024-01-24 12:05 | US ---
Site ID [facility] Erlinda Al ID [id number] 2000 Age/Gender: 22Y, O Order # N/A Procedure US OB <= 14 wk fetus Date 12/22/2023 5:12:00 PM EXAMINATION TYPE: Transabdominal DATE OF EXAM: 01/05/2024 11:47 PM COMPARISON: None, please note PACS Production downtime occurred during the radiologist interpretation of these images with limited priors/reports. CLINICAL INDICATION: 22 year old with history of pelvic pain; EXAM PERFORMED: Transabdominal (TA)-unable to do transvaginal portion due to pelvic rest. EXAM MEASUREMENTS: GESTATIONAL AGE / DATING Dates by LMP: 07/31/2024 (8 weeks/2 days) EDC: 07/31/2024 Dates by Current Scan for: (7 weeks/1 days) EDC: 08/08/2024 MATERNAL ANATOMY Uterus: Retroverted uterus measuring 7.3 x 4.0 x 5.4 cm. Right Ovary: Nonvisualized due to overlying bowel gas. Left Ovary: Nonvisualized due to overlying bowel gas. Post CDS / Adnexa: Unremarkable Presence of free fluid: No Presence of corpus luteal cyst: No Presence of subchorionic bleed: No GESTATION / SURVEY CRL: 1.68 (8 weeks/1 days) MSD: 1.78 (6 weeks/1 days) Yolk Sac (normal less than 6mm): Not visualized Heart Rate: 167 bpm Rhythm: Normal IUP: Viable IUP IMPRESSION: Single live intrauterine gestation with estimated gestational age of 7 weeks 1 day and estimated due date of 08/08/2024.
--- NOTE | 2024-01-25 09:01 | XR ---
Patient Erlinda García ID [birth year] Order # EXAMINATION TYPE: XR chest 1V DATE OF EXAM: 12/22/2023 COMPARISON: No comparison on downtime PACS INDICATION: Chest wall pain TECHNIQUE: Single frontal view of the chest is obtained. Patient was carefully shielded during the ex am. FINDINGS: The heart size is normal. The pulmonary vasculature is normal. The lungs are clear. No pneumothorax is evident. No acute osseous abnormality is evident. IMPRESSION: 1. No acute pulmonary process. 2. No suspicious abnormality to account for chest wall pain.
== END 2023-12-22 19:08 | disposition home or self-care (01) ==
LOC: EC 15:07
CPT/HCPCS: 71045; 76801; 93005; 96360; 99285

== ENCOUNTER 2024-05-31 19:47 | Outpatient (CLI) | payer OTHER ==
[2024-05-31 20:46] VITALS: BP 118/52; PULSE 100; RESP 16; TEMP 98.4
--- NOTE | 2024-06-10 15:59 | P.MSEPDOC ---
Presenting Problems - Arrival Data Date of Arrival on Unit: 05/31/24 Time of Arrival on Unit: 19:45 Mode of Transport: Ambulatory - Complaint OB-Reason for Admission/Chief Complaint: Decreased Movement Medical History - Information : 2 Para: 1 Term: 1 : 0 Abortions: Spontaneous or Elective: 0 Number of Living Children: 1 - Gestational Age Gestational Age by LESLIE (wks/days): 31 Weeks and 2 Days Review of Systems - Review of Systems Constitutional: No problems Breast: No problems ENT: No problems Cardiovascular: No problems Respiratory: No problems Gastrointestinal: No problems Genitourinary: No problems Musculoskeletal: No problems Neurological: No problems Skin: No problems Vital Signs - Temperature Temperature: 98.4 F Temperature Source: Oral - Pulse Sitting Pulse Rate: 100 Pulse Assessment Method: Palpation - Respirations Respiratory Rate: 16 Oxygen Delivery Method: Room Air - Blood Pressure Right Arm Blood Pressure: 118/52 Blood Pressure Mean: 74 Blood Pressure Source: Automatic Cuff Medical Screen Scoring - Assessment - Baby A Baseline FHR: 135 Heart Rate - NICHD Category: Category I (Normal) Physician Notification - Physician Notified Physician Notified Date: 05/31/24 Physician Notified Time: 20:44 Maternal Triage Index - Non-Urgent/Priority 4 Non-Urgent Priority 4: Yes Criteria Met for Priority 4: DECREASE MOVEMENT. NO OTHER COMPLAINTS. NST REACTIVE Disposition - Disposition OB Disposition: Discharge to home Discharge Date: 05/31/24 Discharge Time: 20:44 I agree with the RN Medical Screening Exam: Yes Physician's MSE Comment: I have neither seen nor examined the patient Case reviewed; plan agreed upon as documented in EMR&OBIX.: Yes Diagnosis: DECREASED MOVEMENTS, THIRD TRIMESTER, FETUS 1
== END 2024-05-31 20:46 | disposition home or self-care (01) ==
LOC: FBPOP 19:47
PROVIDERS: ATTEND Obstetrics & Gynecology
DX: O36.8131 Decreased fetal movements, third trimester, fetus 1 (principal); Z3A.31 31 weeks gestation of pregnancy; Z91.09 Other allergy status, other than to drugs and biological substances
CPT/HCPCS: 59025; G0463; 99213

== ENCOUNTER 2024-06-02 23:08 | Outpatient (CLI) | payer OTHER ==
[2024-06-02 23:36] LABS: Appearance,Urine Clear (Clear); Bacteria,Urine Occasional /hpf; Bilirubin,Urine Negative (Negative); Blood,Urine Negative (Negative); Color,Urine Light Yellow; Glucose,Urine (UA) Negative (Negative); Ketones,Urine Negative (Negative); Leukocyte Esterase,Urine Small (Negative); Mucus,Urine Rare /hpf; Nitrite,Urine Negative (Negative); PH, Urine 6.5 (5.0-8.0); Protein,Urine Negative (Negative); RBC,Urine 1 /hpf (0-5); Specific Gravity,Urine 1.012 (1.001-1.035); Squamous Epithelial Cell,Urine <1 /hpf (0-4); Urobilinogen,Urine <2.0 mg/dL (<2.0); WBC,Urine 18 /hpf (0-5)
[2024-06-03 03:15] VITALS: BP 100/67; PULSE 103; RESP 16; TEMP 98
--- NOTE | 2024-06-10 16:02 | P.MSEPDOC ---
Presenting Problems - Arrival Data Date of Arrival on Unit: 06/02/24 Time of Arrival on Unit: 23:08 Mode of Transport: Ambulatory - Complaint OB-Reason for Admission/Chief Complaint: Signs/Symptoms UTI Medical History - Information : 2 Para: 1 Term: 1 : 0 Abortions: Spontaneous or Elective: 0 Number of Living Children: 1 - Gestational Age Gestational Age by LESLIE (wks/days): 31 Weeks and 5 Days Review of Systems - Review of Systems Constitutional: No problems Breast: No problems ENT: No problems Cardiovascular: No problems Respiratory: No problems Gastrointestinal: No problems Genitourinary: Urgency, Increased frequency Musculoskeletal: No problems Neurological: No problems Skin: No problems Vital Signs - Temperature Temperature: 98.0 F Temperature Source: Oral - Pulse Right Sitting Pulse Rate: 103 Pulse Assessment Method: Automatic Cuff - Respirations Respiratory Rate: 16 Oxygen Delivery Method: Room Air O2 Sat by Pulse Oximetry: 97 - Blood Pressure Right Arm Sitting Blood Pressure: 100/67 Blood Pressure Mean: 78 Blood Pressure Source: Automatic Cuff Medical Screen Scoring - Cervical Exam Membranes: Intact - Assessment - Baby A Baseline FHR: 135 Heart Rate - NICHD Category: Category I (Normal) NST: Reactive Physician Notification - Physician Notified Physician Notified Date: 06/02/24 Physician Notified Time: 23:46 Physician: Stormy Puentes Order Received: Yes (send urine for culture, pt to call office in am for antibiotics.) Maternal Triage Index - Maternal Triage Index Presenting for scheduled procedure w/no complaint: No - Stat/Priority 1 Stat Priority 1: No - Urgent/Priority 2 Urgent Priority 2: No - Prompt/Priority 3 Prompt Priority 3: No - Non-Urgent/Priority 4 Non-Urgent Priority 4: Yes Criteria Met for Priority 4: UTI symptoms Disposition - Disposition OB Disposition: Discharge to home, Written follow up instructions reviewed Discharge Date: 06/03/24 Discharge Time: 00:30 I agree with the RN Medical Screening Exam: Yes Physician's MSE Comment: I have neither seen nor examined the patient Case reviewed; plan agreed upon as documented in EMR&OBIX.: Yes Diagnosis: URINARY TRACT INFECTION, SITE NOT SPECIFIED
== END 2024-06-03 00:30 | disposition home or self-care (01) ==
LOC: FBPOP 23:08
PROVIDERS: ATTEND Obstetrics & Gynecology
DX: O23.43 Unspecified infection of urinary tract in pregnancy, third trimester (principal); N39.0 Urinary tract infection, site not specified; Z91.09 Other allergy status, other than to drugs and biological substances; Z3A.31 31 weeks gestation of pregnancy
CPT/HCPCS: 59025; 84112; 81001; 87086; G0463; 99213

== ENCOUNTER 2024-06-27 22:05 | Outpatient (CLI) | payer OTHER ==
[2024-06-27 23:05] LABS: Appearance,Urine Clear (Clear); Bilirubin,Urine Negative (Negative); Blood,Urine Negative (Negative); Color,Urine Light Yellow; Glucose,Urine (UA) Negative (Negative); Ketones,Urine Negative (Negative); Leukocyte Esterase,Urine Negative (Negative); Nitrite,Urine Negative (Negative); PH, Urine 6.5 (5.0-8.0); Protein,Urine Negative (Negative); Specific Gravity,Urine 1.017 (1.001-1.035); Urobilinogen,Urine <2.0 mg/dL (<2.0)
[2024-06-27 23:28] VITALS: BP 110/62; PULSE 114; RESP 18; TEMP 97.2
--- NOTE | 2024-07-03 12:46 | P.MSEPDOC ---
Presenting Problems - Arrival Data Date of Arrival on Unit: 06/27/24 Time of Arrival on Unit: 22:05 Mode of Transport: Ambulatory - Complaint OB-Reason for Admission/Chief Complaint: Possible Onset of Labor, Pain, Signs/Symptoms UTI Comment: Pt presents to triage with complaints of contractions. Pt states she has "had [place] since about 20 weeks, but woke up this morning and the contractions were more intense. She states the contractions come and go. Pt also complaints of back pain, and has been treated for UTIs and kidney stones with this . Pt also complains of dizziness/lightheadedness/headaches on occasion. Pt states she is is intermittently dizzy but denies headache at this time. Pt also complains of decreased movement today. movement noted audibly and via palpation multiple times. Medical History - Information : 2 Para: 1 Term: 1 : 0 Abortions: Spontaneous or Elective: 0 Number of Living Children: 1 - Gestational Age Gestational Age by LESLIE (wks/days): 35 Weeks and 1 Days Review of Systems - Review of Systems Constitutional: No problems Breast: No problems ENT: No problems Cardiovascular: No problems Respiratory: No problems Gastrointestinal: No problems Genitourinary: No problems Musculoskeletal: No problems Neurological: No problems Skin: No problems Vital Signs - Temperature Temperature: 97.2 F Temperature Source: Temporal Artery Scan - Pulse Right Pulse Rate: 114 Pulse Assessment Method: Pulse Oximetry - Respirations Respiratory Rate: 18 Oxygen Delivery Method: Room Air O2 Sat by Pulse Oximetry: 93 - Blood Pressure Right Arm Blood Pressure: 110/62 Blood Pressure Mean: 78 Blood Pressure Source: Automatic Cuff Medical Screen Scoring - Cervical Exam Dilation (cm): 0 Membranes: Intact - Uterine Contractions Resting: Soft to palpation - Assessment - Baby A Baseline FHR: 150 Heart Rate - NICHD Category: Category I (Normal) NST: Reactive Physician Notification - Physician Notified Physician Notified Date: 06/27/24 Physician Notified Time: 23:06 Physician: Storym Puentes Order Received: Yes - Notification Comment Comment: Notified Dr Puentes of patient's complaints of contractions and back pain that became more intense this morning. occasional dizziness, headaches no headache at this time. notitied that patient has been treated for UTIs and kidney stones this . Notified that SVE was closed/thick/high, NST reactive, UA negative. Pt not dionisio. Vitals WNL. Dr Puentes ordered d/c and to advise rest and hydration. Maternal Triage Index - Maternal Triage Index Presenting for scheduled procedure w/no complaint: No - Stat/Priority 1 Stat Priority 1: No - Urgent/Priority 2 Urgent Priority 2: No - Prompt/Priority 3 Prompt Priority 3: Yes Criteria Met for Priority 3: 35/1 weeks with complaints of contractions. Disposition - Disposition OB Disposition: Discharge to home Discharge Date: 06/27/24 Discharge Time: 23:17 I agree with the RN Medical Screening Exam: Yes Physician's MSE Comment: I have neither seen nor examined the patient Case reviewed; plan agreed upon as documented in EMR&OBIX.: Yes Diagnosis: MATERNAL CARE FOR PROBLEM, UNSP, THIRD * DO NOT USE *
== END 2024-06-27 23:17 | disposition home or self-care (01) ==
LOC: FBPOP 22:05
PROVIDERS: ATTEND Obstetrics & Gynecology
DX: O36.93X0 Maternal care for fetal problem, unspecified, third trimester, not applicable or unspecified (principal); Z3A.36 36 weeks gestation of pregnancy; Z91.048 Other nonmedicinal substance allergy status
CPT/HCPCS: 59025; 81003; G0463; 99213

== ENCOUNTER 2024-07-03 09:52 | Outpatient (CLI) | payer OTHER ==
[2024-07-03 11:05] VITALS: BP 116/58; PULSE 123; RESP 18; TEMP 97.9
--- NOTE | 2024-07-03 13:04 | P.MSEPDOC ---
Presenting Problems - Arrival Data Date of Arrival on Unit: 07/03/24 Time of Arrival on Unit: 09:58 Mode of Transport: Ambulatory - Complaint OB-Reason for Admission/Chief Complaint: Headache Comment: abdominal pain in left lower abdomen and right upper abdomen since the morning. headache for past 4 days. Medical History - Information : 2 Para: 1 Term: 1 : 0 Abortions: Spontaneous or Elective: 0 Number of Living Children: 1 - Gestational Age Gestational Age by LESLIE (wks/days): 36 Weeks and 0 Days Review of Systems - Review of Systems Constitutional: No problems Breast: No problems ENT: No problems Cardiovascular: No problems Respiratory: No problems Gastrointestinal: No problems Genitourinary: No problems Musculoskeletal: No problems Neurological: No problems Skin: No problems Vital Signs - Temperature Temperature: 97.9 F Temperature Source: Temporal Artery Scan - Pulse Right Brachial Pulse Rate: 123 Pulse Assessment Method: Automatic Cuff - Respirations Respiratory Rate: 18 Oxygen Delivery Method: Room Air O2 Sat by Pulse Oximetry: 98 - Blood Pressure Right Arm Blood Pressure: 116/58 Blood Pressure Mean: 77 Blood Pressure Source: Automatic Cuff Medical Screen Scoring - Cervical Exam Dilation (cm): 0 Effacement (%): 0 Station: -3 Membranes: Intact - Uterine Contractions Resting: Soft to palpation - Assessment - Baby A Baseline FHR: 160 Heart Rate - NICHD Category: Category I (Normal) NST: Reactive Physician Notification - Physician Notified Physician Notified Date: 07/03/24 Physician Notified Time: 10:50 Physician: Shanti Puentes Order Received: Yes - Notification Comment Comment: D/C home. Keep hydrated Maternal Triage Index - Maternal Triage Index Presenting for scheduled procedure w/no complaint: No - Stat/Priority 1 Stat Priority 1: No - Urgent/Priority 2 Urgent Priority 2: No - Prompt/Priority 3 Prompt Priority 3: No - Non-Urgent/Priority 4 Non-Urgent Priority 4: Yes Criteria Met for Priority 4: abdominal pain since this morning in left lower abdomen and right upper abdomen. headache Disposition - Disposition OB Disposition: Discharge to home Discharge Date: 07/03/24 Discharge Time: 11:01 I agree with the RN Medical Screening Exam: Yes Physician's MSE Comment: I have neither seen nor examined the patient Case reviewed; plan agreed upon as documented in EMR&OBIX.: Yes Diagnosis: PELVIC AND PERINEAL PAIN
== END 2024-07-03 11:01 | disposition home or self-care (01) ==
LOC: FBPOP 09:52
PROVIDERS: ATTEND Obstetrics & Gynecology
DX: O26.893 Other specified pregnancy related conditions, third trimester (principal); Z3A.36 36 weeks gestation of pregnancy; Z91.048 Other nonmedicinal substance allergy status
CPT/HCPCS: 59025; G0463; 99213

== ENCOUNTER 2024-07-08 22:58 | Outpatient (CLI) | payer OTHER ==
[2024-07-09 01:12] VITALS: BP 118/81; PULSE 115; RESP 18; TEMP 97.2
--- NOTE | 2024-08-05 11:02 | P.MSEPDOC ---
Presenting Problems - Arrival Data Date of Arrival on Unit: 07/09/24 Time of Arrival on Unit: 22:58 Mode of Transport: Ambulatory - Complaint OB-Reason for Admission/Chief Complaint: Possible Onset of Labor Comment: presents to triage with complaints of contractions and back pain Medical History - Information : 2 Para: 1 Term: 1 : 0 Abortions: Spontaneous or Elective: 0 Number of Living Children: 1 - Gestational Age Gestational Age by LESLIE (wks/days): 36 Weeks and 6 Days Review of Systems - Review of Systems Constitutional: No problems Breast: No problems ENT: No problems Cardiovascular: No problems Respiratory: No problems Gastrointestinal: No problems Genitourinary: No problems Musculoskeletal: No problems Neurological: No problems Skin: No problems Vital Signs - Temperature Temperature: 97.2 F Temperature Source: Temporal Artery Scan - Pulse Pulse Oximetery Pulse Rate: 115 Pulse Assessment Method: Pulse Oximetry - Respirations Respiratory Rate: 18 Oxygen Delivery Method: Room Air O2 Sat by Pulse Oximetry: 97 - Blood Pressure Right Arm Blood Pressure: 118/81 Blood Pressure Mean: 93 Blood Pressure Source: Automatic Cuff Medical Screen Scoring - Cervical Exam Dilation (cm): 0 Effacement (%): 0 Station: -2 Membranes: Intact - Uterine Contractions Frequency From (mins): 3 Frequency To (mins): 7 Duration From (seconds): 40 Duration To (seconds): 50 Intensity: Mild Resting: Soft to palpation - Assessment - Baby A Baseline FHR: 130 Heart Rate - NICHD Category: Category I (Normal) NST: Reactive Physician Notification - Physician Notified Physician Notified Date: 07/09/24 Physician Notified Time: 00:45 Physician: Erick Gonzalez Order Received: Yes (d/c home) Maternal Triage Index - Maternal Triage Index Presenting for scheduled procedure w/no complaint: No - Stat/Priority 1 Stat Priority 1: No - Urgent/Priority 2 Urgent Priority 2: No - Prompt/Priority 3 Prompt Priority 3: Yes Criteria Met for Priority 3: pt pressents with contractions and back pain at 36/6. rates contractions 3/10 pain. states that she is R C/S Disposition - Disposition OB Disposition: Discharge to home Discharge Date: 07/09/24 Discharge Time: 00:50 I agree with the RN Medical Screening Exam: Yes Physician's MSE Comment: I have neither seen nor examined the patient. Case reviewed; plan agreed upon as documented in EMR&OBIX.: Yes Diagnosis: RELATED CONDITIONS, UNSPECIFIED, THIRD TRIMESTER
== END 2024-07-09 00:50 | disposition home or self-care (01) ==
LOC: FBPOP 22:58
PROVIDERS: ATTEND Obstetrics & Gynecology
DX: O26.93 Pregnancy related conditions, unspecified, third trimester (principal); Z3A.36 36 weeks gestation of pregnancy; Z91.048 Other nonmedicinal substance allergy status
CPT/HCPCS: 59025; 84112; G0463; 99213

== ENCOUNTER 2024-07-11 15:52 | Outpatient (CLI) | payer OTHER ==
[2024-07-11 16:14] LABS: Appearance,Urine Cloudy (Clear); Bacteria,Urine Rare /hpf; Bilirubin,Urine Negative (Negative); Blood,Urine Negative (Negative); Color,Urine Colorless; Glucose,Urine (UA) Negative (Negative); Ketones,Urine Negative (Negative); Leukocyte Esterase,Urine Trace (Negative); Mucus,Urine Rare /hpf; Nitrite,Urine Negative (Negative); Protein,Urine Negative (Negative); RBC,Urine 1 /hpf (0-5); Specific Gravity,Urine 1.007 (1.001-1.035); Squamous Epithelial Cell,Urine 2 /hpf (0-4); Urobilinogen,Urine <2.0 mg/dL (<2.0); WBC,Urine 2 /hpf (0-5)
[2024-07-11 16:32] VITALS: BP 118/62; PULSE 121; RESP 16; TEMP 97.3
--- NOTE | 2024-08-18 20:23 | P.MSEPDOC ---
Presenting Problems - Arrival Data Date of Arrival on Unit: 07/11/24 Time of Arrival on Unit: 15:52 Mode of Transport: Ambulatory - Complaint OB-Reason for Admission/Chief Complaint: Pain Comment: Sharp mid back pain 7/10, abdominal pressure. Started today. Medical History - Information : 2 Para: 1 Term: 1 Number of Living Children: 1 - Gestational Age Gestational Age by LESLIE (wks/days): 36 Weeks and 6 Days - History Complications: Prior Review of Systems - Review of Systems Constitutional: No problems Breast: No problems ENT: No problems Cardiovascular: No problems Respiratory: No problems Gastrointestinal: No problems Genitourinary: No problems Musculoskeletal: No problems Neurological: No problems Skin: No problems Vital Signs - Temperature Temperature: 97.3 F Temperature Source: Temporal Artery Scan - Pulse Right Sitting Brachial Pulse Rate: 121 Pulse Assessment Method: Automatic Cuff - Respirations Respiratory Rate: 16 Oxygen Delivery Method: Room Air O2 Sat by Pulse Oximetry: 98 - Blood Pressure Right Arm Sitting Blood Pressure: 118/62 Blood Pressure Mean: 80 Blood Pressure Source: Automatic Cuff Medical Screen Scoring - Cervical Exam Dilation (cm): 0 Effacement (%): 70 Membranes: Intact - Assessment - Baby A Baseline FHR: 135 Heart Rate - NICHD Category: Category I (Normal) NST: Reactive Physician Notification - Physician Notified Physician Notified Date: 07/11/24 Physician Notified Time: 16:22 Physician: Natali Nova New Order Received: Yes - Notification Comment Comment: Spk c/Dr. Nova, aware of pt, , 36 6/7, pt sent to triage by [facility] nurse when pt reported back and abdominal pain. Pt rates back pain 7/10, ab pain "just pressure", SVE closed/70/ballottable. Reactive Cat I NST. Has appt tomorrow. Order rec'd to suggest maternity support belt and d/c home to follow up tomorrow. Maternal Triage Index - Non-Urgent/Priority 4 Non-Urgent Priority 4: Yes Criteria Met for Priority 4: Discomfort Disposition - Disposition OB Disposition: Discharge to home, Written follow up instructions reviewed Discharge Date: 07/11/24 Discharge Time: 16:25 I agree with the RN Medical Screening Exam: Yes Case reviewed; plan agreed upon as documented in EMR&OBIX.: Yes Diagnosis: RELATED CONDITIONS, UNSPECIFIED, THIRD TRIMESTER
== END 2024-07-11 16:25 | disposition home or self-care (01) ==
LOC: FBPOP 15:52
PROVIDERS: ATTEND Obstetrics & Gynecology Obstetrics
DX: O26.93 Pregnancy related conditions, unspecified, third trimester (principal); Z3A.36 36 weeks gestation of pregnancy
CPT/HCPCS: 59025; 81001; G0463; 99213

== ENCOUNTER 2024-07-15 21:20 | Outpatient (CLI) | payer OTHER ==
[2024-07-15 22:25] VITALS: BP 108/63; PULSE 109; RESP 18; TEMP 97.3
== END 2024-07-15 22:10 | disposition home or self-care (01) ==
LOC: FBPOP 21:20
PROVIDERS: ATTEND Obstetrics & Gynecology
DX: Z53.9 Procedure and treatment not carried out, unspecified reason (principal)
CPT/HCPCS: 59025; G0463; 99213

== ENCOUNTER 2024-07-20 19:16 | Outpatient (CLI) | payer OTHER ==
[2024-07-20 20:09] VITALS: BP 120/73; PULSE 100; RESP 18; TEMP 98.2
--- NOTE | 2024-08-18 20:31 | P.MSEPDOC ---
Presenting Problems - Arrival Data Date of Arrival on Unit: 07/20/24 Time of Arrival on Unit: 19:16 Mode of Transport: Ambulatory - Complaint OB-Reason for Admission/Chief Complaint: Rule Out SROM Comment: Presents with c/o cx for the Last few weeks but worening today, and leaking fluid since this morning. Medical History - Information : 2 Para: 1 Term: 1 : 0 Abortions: Spontaneous or Elective: 0 Number of Living Children: 1 - Gestational Age Gestational Age by LESLIE (wks/days): 38 Weeks and 1 Days Review of Systems - Review of Systems Constitutional: No problems Breast: No problems ENT: No problems Cardiovascular: No problems Respiratory: No problems Gastrointestinal: No problems Genitourinary: No problems Musculoskeletal: No problems Neurological: No problems Skin: No problems Vital Signs - Temperature Temperature: 98.2 F Temperature Source: Temporal Artery Scan - Pulse Pulse Oximetery Pulse Rate: 100 Pulse Assessment Method: Pulse Oximetry - Respirations Respiratory Rate: 18 Oxygen Delivery Method: Room Air O2 Sat by Pulse Oximetry: 99 - Blood Pressure Right Arm Blood Pressure: 120/73 Blood Pressure Mean: 88 Blood Pressure Source: Automatic Cuff Medical Screen Scoring - Uterine Contractions Intensity: Mild Resting: Soft to palpation - Assessment - Baby A Baseline FHR: 145 Heart Rate - NICHD Category: Category I (Normal) NST: Reactive Physician Notification - Physician Notified Physician Notified Date: 07/20/24 Physician Notified Time: 19:48 Physician: Natali Nova New Order Received: Yes - Notification Comment Comment: Spoke with Dr. Nova, pt of hers. 38 and 1. Presents with c/o cx for the ast few weeks but worening today, and leaking fluid sincet this morning. Amnisure negative, have traced two cx since on the monitor. SVE is closed. Reactive NST and cat 1 tones. Order to d/c pt home Maternal Triage Index - Maternal Triage Index Presenting for scheduled procedure w/no complaint: No - Stat/Priority 1 Stat Priority 1: No - Urgent/Priority 2 Urgent Priority 2: No - Prompt/Priority 3 Prompt Priority 3: Yes Criteria Met for Priority 3: Spoke with Dr. Nova, pt of hers. 38 and 1. Presents with c/o cx for the ast few weeks but worening today, and leaking fluid sincet this morning. Amnisure negative, have traced two cx since on the monitor. SVE is closed. Reactive NST and cat 1 tones. Order to d/c pt home Disposition - Disposition OB Disposition: Discharge to home I agree with the RN Medical Screening Exam: Yes Case reviewed; plan agreed upon as documented in EMR&OBIX.: Yes Diagnosis: FALSE LABOR AT OR AFTER 37 COMPLETED WEEKS OF GESTATION
== END 2024-07-20 19:54 | disposition home or self-care (01) ==
LOC: FBPOP 19:16
PROVIDERS: ATTEND Obstetrics & Gynecology Obstetrics
DX: O47.1 False labor at or after 37 completed weeks of gestation (principal); Z91.048 Other nonmedicinal substance allergy status; Z3A.38 38 weeks gestation of pregnancy
CPT/HCPCS: 59025; 84112; G0463; 99213

== ENCOUNTER 2024-07-23 19:44 | Outpatient (CLI) | payer OTHER ==
[2024-07-23 21:15] VITALS: BP 137/68; PULSE 111; RESP 16; TEMP 98.5
--- NOTE | 2024-08-18 20:34 | P.MSEPDOC ---
Presenting Problems - Arrival Data Date of Arrival on Unit: 07/23/24 Time of Arrival on Unit: 19:44 Mode of Transport: Ambulatory - Complaint OB-Reason for Admission/Chief Complaint: Pain Comment: Vaginal pressure 7/10, back pain 5/10, sharp Medical History - Information : 2 Para: 1 Term: 1 : 0 Abortions: Spontaneous or Elective: 0 Number of Living Children: 1 - Gestational Age Gestational Age by LESLIE (wks/days): 38 Weeks and 4 Days - History Complications: Prior Review of Systems - Review of Systems Constitutional: No problems Breast: No problems ENT: No problems Cardiovascular: No problems Respiratory: No problems Gastrointestinal: No problems Genitourinary: No problems Musculoskeletal: No problems Neurological: No problems Skin: No problems Vital Signs - Temperature Temperature: 98.5 F Temperature Source: Temporal Artery Scan - Pulse Pulse Oximetery Pulse Rate: 111 Pulse Assessment Method: Pulse Oximetry - Respirations Respiratory Rate: 16 Oxygen Delivery Method: Room Air O2 Sat by Pulse Oximetry: 99 - Blood Pressure Right Arm Blood Pressure: 137/68 Blood Pressure Mean: 91 Blood Pressure Source: Automatic Cuff Medical Screen Scoring - Cervical Exam Membranes: Intact - Uterine Contractions Intensity: Mild Resting: Soft to palpation - Assessment - Baby A Baseline FHR: 150 Heart Rate - NICHD Category: Category I (Normal) NST: Reactive Physician Notification - Physician Notified Physician Notified Date: 07/23/24 Physician Notified Time: 20:20 Physician: Natali Nova New Order Received: Yes - Notification Comment Comment: Report given to Dr. Nova, notified of pt complaints, GA, G/P, VSS, Amnisure negative, CAT 1 FHT, Reactive NST, contraction pattern, cervical exam. Order to observe pt for 1 hour and recheck cervix, if no cervical change, discharge home. Maternal Triage Index - Maternal Triage Index Presenting for scheduled procedure w/no complaint: No - Stat/Priority 1 Stat Priority 1: No - Urgent/Priority 2 Urgent Priority 2: No - Prompt/Priority 3 Prompt Priority 3: No - Non-Urgent/Priority 4 Non-Urgent Priority 4: Yes Criteria Met for Priority 4: Vaginal pressure and pain, lower back pain, possible SROM Disposition - Disposition OB Disposition: Discharge to home Discharge Date: 07/23/24 Discharge Time: 21:08 I agree with the RN Medical Screening Exam: Yes Case reviewed; plan agreed upon as documented in EMR&OBIX.: Yes Diagnosis: FALSE LABOR AT OR AFTER 37 COMPLETED WEEKS OF GESTATION
== END 2024-07-23 21:08 | disposition home or self-care (01) ==
LOC: FBPOP 19:44
PROVIDERS: ATTEND Obstetrics & Gynecology Obstetrics
DX: O47.1 False labor at or after 37 completed weeks of gestation (principal); Z91.048 Other nonmedicinal substance allergy status; Z3A.38 38 weeks gestation of pregnancy
CPT/HCPCS: 59025; G0463; 99213

== ENCOUNTER 2024-07-26 05:26 | Inpatient (IN) | payer OTHER ==
[2024-07-26] MEDS ORDERED: TRANEXAMIC 1,000 MG/100ML-NACL 1,000 MG in EMPTY BAG 1 BAG IV PRN (05:40)
[2024-07-26] MEDS ORDERED: OXYTOCIN 10 UNIT/ML 1 ML VIAL IM PRN (05:40)
[2024-07-26] MEDS ORDERED: CARBOPROST TROMETHAMINE 250 MCG/ML 1 ML AMP IM PRN (05:40)
[2024-07-26] MEDS ORDERED: METHYLERGONOVINE 0.2 MG/ML 1 ML AMP IM PRN (05:40)
[2024-07-26] MEDS ORDERED: miSOPROStoL 200 MCG TAB PO PRN (05:40)
[2024-07-26] MEDS: CITRIC ACID-SODIUM CITRATE 15 ML CUP PO ONE (07:24)
[2024-07-26 07:47] LABS: Anisocytosis Slight; Basophils % (A) 0 %; Eosinophils # (A) 0.3 k/uL (0-0.7); Eosinophils % (A) 2 %; HCT 31.3 % (34.0-46.0); HGB 9.1 gm/dL (11.4-16.0); Hypochromasia Marked; Lymphocytes # (A) 1.9 k/uL (1.0-4.8); Lymphocytes % (A) 14 %; MCH 19.9 pg (25.0-35.0); MCHC 29.2 g/dL (31.0-37.0); Mean Platelet Volume 7.3; Microcytosis Marked; Monocytes # (A) 0.9 k/uL (0-1.0); Monocytes % (A) 7 %; Neutrophils # (A) 9.8 k/uL (1.3-7.7); Neutrophils % (A) 74 %; Platelet Count 333 k/uL (150-450); Poikilocytosis Moderate; RBC 4.59 m/uL (3.80-5.40); RDW 17.4 % (11.5-15.5); WBC 13.2 k/uL (3.8-10.6)
[2024-07-26] MEDS ORDERED: ONDANSETRON 4 MG/2 ML VIAL ONE (07:56)
[2024-07-26] MEDS ORDERED: PHENYLEPHRINE 10 MG/ML VIAL ONE (07:56)
[2024-07-26] MEDS ORDERED: NALBUPHINE (ANES) 10 MG/ML - 1 ML AMP ONE (07:56)
[2024-07-26] MEDS ORDERED: MORPHINE SULFATE (PF) 0.3 MG/0.3 ML SYR ONE (07:56)
[2024-07-26] MEDS ORDERED: OXYTOCIN 10 UNIT/ML 1 ML VIAL ONE (07:56)
[2024-07-26] MEDS ORDERED: ZOLPIDEM 5 MG TAB PO PRN (08:42)
[2024-07-26] MEDS ORDERED: diphenhydrAMINE 50 MG/ML 1 ML VIAL IVP PRN ×2 (08:42)
[2024-07-26] MEDS ORDERED: diphenhydrAMINE 25 MG CAP PO PRN (08:42)
[2024-07-26] MEDS ORDERED: diphenhydrAMINE 50 MG CAP PO PRN (08:42)
[2024-07-26] MEDS ORDERED: METOCLOPRAMIDE 5 MG/ML 2 ML VIAL IVP PRN (08:42)
[2024-07-26] MEDS ORDERED: SIMETHICONE 80 MG CHEWABLE PO PRN (08:42)
[2024-07-26] MEDS ORDERED: NALOXONE 0.4 MG/ML 1 ML VIAL IV PRN (08:42)
--- NOTE | 2024-07-26 08:46 | P.HPOB ---
History of Present Illness H&P Date: 07/26/24 Chief Complaint: IUP at 39-0/7 weeks, SROM, history of section x 1 This is a 23-year-old -0-0-1 at 39-0/7 weeks that presents to labor and delivery with complaints of spontaneous rupture of membranes around 4 AM. Patient notes the fluid to be clear in nature. Patient was scheduled for repeat section today. Patient has been receiving routine care which has been essentially uncomplicated. On blood work this patient is of the type of B+, rubella status immune, hepatitis B surface engine negative, HIV negative, RPR is nonreactive, grew beta strep cultures negative. Review of Systems Constitutional: Denies chills, Denies fatigue, Denies fever Ears, nose, mouth and throat: Denies headache Cardiovascular: Denies leg edema Respiratory: Denies dyspnea Gastrointestinal: Denies constipation, Denies diarrhea, Denies nausea, Denies vomiting Genitourinary: Reports Past Medical History Past Medical History: No Reported History Additional Past Medical History / Comment(s): hx fainting, scoliosis History of Any Multi-Drug Resistant Organisms: None Reported Past Surgical History: No Surgical Hx Reported Past Anesthesia/Blood Transfusion Reactions: No Reported Reaction Past Psychological History: Anxiety, Depression, PTSD Smoking Status: Never smoker Past Alcohol Use History: None Reported Past Drug Use History: None Reported - Past Family History Mother Family Medical History: No Reported History Medications and Allergies Home Medications Medication Instructions Recorded Confirmed Type Omeprazole 20 mg PO DAILY 05/17/24 07/26/24 History Ferrous Sulfate [Iron] 325 mg PO DAILY 07/26/24 07/26/24 History Allergies Allergy/AdvReac Type Severity Reaction Status Date / Time adhesive AdvReac Mild Rash/Hives Verified 07/26/24 05:38 Exam Osteopathic Statement: *. No significant issues noted on an osteopathic structural exam other than those noted in the History and Physical/Consult. Vital Signs Temp Pulse Resp BP Pulse Ox 07/26/24 05:37 96.7 F L 114 H 16 109/66 96 Intake and Output 07/25/24 07/26/24 07/26/24 22:59 06:59 14:59 Other: # Voids 2 Weight 69.4 kg Targeted physical exam is performed this date General This is a well-nourished well-developed female in no acute distress, breathing is nonlabored, heart has a regular rate and rhythm, abdomen is gravid, rupture of membranes is confirmed in OB triage. Cervical exam is deferred. heart tones found to be category 1 and she is not dionisio. Results Result Diagrams: 07/26/24 07:09 Abnormal Lab Results - Last 24 Hours (Table) 07/26/24 Range/Units 07:09 WBC 13.2 H (3.8-10.6) k/uL Hgb 9.1 L (11.4-16.0) gm/dL Hct 31.3 L (34.0-46.0) % MCV 68.0 L (80.0-100.0) fL MCH 19.9 L (25.0-35.0) pg MCHC 29.2 L (31.0-37.0) g/dL RDW 17.4 H (11.5-15.5) % Neutrophils # 9.8 H (1.3-7.7) k/uL Assessment and Plan (1) Term Current Visit: Yes Status: Acute Code(s): Z34.90 - ENCNTR FOR SUPRVSN OF NORMAL , UNSP, UNSP TRIMESTER SNOMED Code(s): 68246357 (2) Spontaneous rupture of membranes Current Visit: Yes Status: Acute Code(s): NZO0620 - SNOMED Code(s): 302725325 (3) History of section Current Visit: Yes Status: Acute Code(s): Z98.891 - HISTORY OF UTERINE SCAR FROM PREVIOUS SURGERY SNOMED Code(s): 787756230 Plan: 23-year-old G2, P1 at 39-0/7 weeks that presents with complaints of rupture of membranes. Patient was scheduled for repeat section later today. Patient is admitted to labor and delivery anesthesia is notified. Will plan repeat section
--- NOTE | 2024-07-26 08:49 | P.OP ---
Date of Procedure: 07/26/24 Preoperative Diagnosis: IUP at 39-0/7 weeks, history of section x 1, desires repeat, spontaneous rupture of membranes Postoperative Diagnosis: Same Procedure(s) Performed: Repeat section Anesthesia: spinal Surgeon: Natali Nova Estimated Blood Loss (ml): 400 IV fluids (ml): 800 Urine output (ml): 1,000 (Clear yellow) Pathology: none sent Condition: stable Disposition: observation Indications for Procedure: History of section x 1, desires repeat. Spontaneous rupture of membranes Operative Findings: Viable female delivered at 817, weight of 7 pounds 10 ounces, Apgars of 9 and 9 at 1 and 5 minutes rectally. Description of Procedure: The patient was prepped and draped in the usual fashion after spinal anesthesia was administered by the anesthesia department. A Pfannenstiel incision was made and extended of the abdominal cavity without difficulty. The bladder peritoneum was elevated and incised and reflected distally. A 2 cm incision was made in the transverse plane of the lower uterine segment to enter the uterus at which time clear fluid was noted. The incision was extended in both directions using the bandage scissors. The head was encountered within the field and delivered up and through the incision where the nose and mouth were thoroughly suctioned. Remainder of the was delivered onto the surgical field where the cord was doubly clamped, cut, and the was passed for resuscitative measures with weight and Apgars as noted above. The placenta was delivered manually, intact, and was grossly normal with a grossly normal three-vessel cord. The uterus was exteriorized and the interior cavity of the uterus swept of any remaining placental and membranous fragments with a laparotomy sponge. T he margins of the incision were grasped with Fung clamps and the incision closed in 2 layers. First layer was a running locking layer of 0 Vicryl from margin to margin followed by a second layer of imbricating 0 Vicryl from margin to margin. Any small points of bleeding were then made hemostatic with the Bovie. Once hemostasis was achieved, the posterior cul-de-sac was suctioned with a guard and the uterine and ovarian findings are as noted above. The uterus was replaced within the abdominal cavity and the gutters swept of any remaining blood fluid or clot. The incision was again reexamined and hemostasis was noted to be excellent. Any small point of bleeding were made hemostatic with the Bovie. Once hemostasis was achieved the parietal peritoneum was loosely reapproximated. The layer of muscles were examined and made hemostatic with the Bovie. Attention was then turned to the fascia which was closed with 0 Vicryl in a running fashion from 1 lateral edge to the other. The subcutaneous tissues were irrigated, made hemostatic with the Bovie, and reapproximated with a running stitch of 30 Vicryl. The skin was reapproximated with 4-0 Vicryl. Estimated blood loss for the case was approximately 400 mL. All sponge instrument and needle counts are correct. There were no complications. The patient tolerated the procedure well and proceeded to the recovery room in st able condition. Both mother and infant are resting comfortably in recovery.
[2024-07-26] MEDS: ACETAMINOPHEN IV (For NPO) 1,000 MG in EMPTY BAG 1 BAG IVPB ONE (10:50)
[2024-07-26] MEDS: LACTATED RINGERS 1,000 ML IV SCH (10:52)
[2024-07-26] MEDS: PANTOPRAZOLE 40 MG TABLET PO SCH (10:52)
[2024-07-26] MEDS: FERROUS SULFATE 325 MG TAB PO SCH (14:16)
[2024-07-26] MEDS: IBUPROFEN 800 MG TAB PO SCH (14:18)
[2024-07-26] MEDS: ONDANSETRON 4 MG/2 ML VIAL IVP PRN (14:22)
[2024-07-26] MEDS: ACETAMINOPHEN TAB 500 MG TAB PO SCH (19:59)
[2024-07-26] MEDS: SENNOSIDES-DOCUSATE SODIUM 1 EACH TAB PO SCH (19:59)
[2024-07-27 05:39] LABS: Anisocytosis Slight; Basophils % (A) 0 %; Eosinophils # (A) 0.2 k/uL (0-0.7); Eosinophils % (A) 2 %; HCT 23.1 % (34.0-46.0); Hypochromasia Marked; Lymphocytes % (A) 14 %; MCH 19.6 pg (25.0-35.0); MCV 67.7 fL (80.0-100.0); Mean Platelet Volume 8.9; Microcytosis Marked; Monocytes # (A) 1.1 k/uL (0-1.0); Monocytes % (A) 8 %; Neutrophils % (A) 74 %; Platelet Count 282 k/uL (150-450); Poikilocytosis Moderate; RBC 3.41 m/uL (3.80-5.40); RDW 18.1 % (11.5-15.5); WBC 14.8 k/uL (3.8-10.6)
[2024-07-27 05:57] LABS: HGB 6.7 gm/dL (11.4-16.0)
--- NOTE | 2024-07-27 11:52 | P.PN ---
Progress Note - Text 07/27/24 750am -year-old female status post with spinal Duramorph. Patient seen and evaluated for postop pain control, she has a VAS of 2 with no complaint of nausea vomiting or pruritus.
--- NOTE | 2024-07-27 12:31 | P.PNOBGPC ---
Subjective - Subjective Principal diagnosis: Postop day 1, repeat section Interval history: Patient is doing well this morning. Noted decrease in hemoglobin is appreciated from 9-6.8. Patient is normally anemic during . Patient has been taking iron daily throughout the . Patient denies concerns. She is ambulating without dizziness denies shortness of breath. Lochia is noted to be minimal. Pain is well-controlled. Patient reports: Reports appetite normal, Reports voiding normally, Reports pain well controlled, Reports ambulating normally [place]: doing well Objective - Vital Signs Latest vital signs: Vital Signs Temp Pulse Resp BP Pulse Ox 07/27/24 08:00 99.0 F 89 16 103/60 98 07/27/24 03:59 98.0 F 100 15 107/53 98 07/27/24 00:00 98.3 F 92 18 100/63 99 07/26/24 20:00 98.2 F 56 L 19 108/71 99 Intake and Output 07/26/24 07/27/24 07/27/24 22:59 06:59 14:59 Intake Total 1200 Output Total 1100 Balance 100 Intake: Oral 1200 Output: Urine 1100 Other: # Voids 2 - Exam Extremities: Present: normal, edema Abdomen: Present: normal appearance, soft Incision: Present: normal, dry, intact, dressed Uterus: Present: normal, firm - Labs Labs: Abnormal Lab Results - Last 24 Hours (Table) 07/27/24 Range/Units 05:26 WBC 14.8 H (3.8-10.6) k/uL RBC 3.41 L (3.80-5.40) m/uL Hgb 6.7 L* D (11.4-16.0) gm/dL Hct 23.1 L (34.0-46.0) % MCV 67.7 L (80.0-100.0) fL MCH 19.6 L (25.0-35.0) pg MCHC 29.0 L (31.0-37.0) g/dL RDW 18.1 H (11.5-15.5) % Neutrophils # 11.0 H (1.3-7.7) k/uL Monocytes # 1.1 H (0-1.0) k/uL Assessment and Plan (1) Term Current Visit: Yes Status: Acute Code(s): Z34.90 - ENCNTR FOR SUPRVSN OF NORMAL , UNSP, UNSP TRIMESTER SNOMED Code(s): 66547748 (2) Spontaneous rupture of membranes Current Visit: Yes Status: Acute Code(s): HPY8177 - SNOMED Code(s): 144074051 (3) History of section Current Visit: Yes Status: Acute Code(s): Z98.891 - HISTORY OF UTERINE SCAR FROM PREVIOUS SURGERY SNOMED Code(s): 534031459 (4) Status post section Current Visit: Yes Status: Acute Code(s): Z98.891 - HISTORY OF UTERINE SCAR FROM PREVIOUS SURGERY SNOMED Code(s): 731891735 Plan: 23-year-old G2 now P2 status post repeat section. Patient struggles with chronic anemia. Labs are reviewed with patient. Possibility of giving 1 unit of packed red blood cells is discussed and she would like to avoid if she is asymptomatic. Will monitor closely, continue routine postoperative care.
--- NOTE | 2024-07-28 09:12 | P.DS ---
Providers Date of admission: 07/26/24 05:26 Expected date of discharge: 07/28/24 Attending physician: Natali Nova Primary care physician: Stated None - Discharge Diagnosis(es) (1) Term Current Visit: Yes Status: Acute (2) Spontaneous rupture of membranes Current Visit: Yes Status: Acute (3) History of section Current Visit: Yes Status: Acute (4) Status post section Current Visit: Yes Status: Acute Hospital Course: This is a 23-year-old G2 now P2 that presented to labor and delivery on 07/26, 39-0/7 weeks with complaints of rupture of membranes. Patient states her water broke around 415 and was clear in nature. Patient had been receiving routine care with myself which had been essentially uncomplicated. Patient was admitted to labor and delivery. Patient did have a history of a primary section and requested repeat. Patient was taken back to the operating room where repeat section was completed without difficulty. Patient delivered a viable female at 817, weight of 7 pounds 10 ounces. For full details on the please see the dictated operative report. Patient has done well postoperatively. On this postoperative day #2 she is ambulating and voiding without difficulty. She is tolerating a regular diet without nausea or vomiting. Her lochia is minimal. She states her pain is well-controlled. She would like discharge home later today. Patient Condition at Discharge: Good Plan - Discharge Summary New Discharge Prescriptions: No Action Ferrous Sulfate [Iron] 325 mg PO DAILY Omeprazole 20 mg PO DAILY Discharge Medication List Omeprazole 20 mg PO DAILY 05/17/24 [History] Ferrous Sulfate [Iron] 325 mg PO DAILY 07/26/24 [History] Follow up Appointment(s)/Referral(s): Natali Nova DO [Doctor of Osteopathic Medicine] - 08/26/24 1:45 pm (Post appointment 09/24/24 at 1:00 PM) Patient Instructions/Handouts: (DC), (GEN) Activity/Diet/Wound Care/Special Instructions: No tub baths or intercourse until 6 weeks . [id number] ibuprofen and Tylenol as needed for pain. Ibuprofen 600 mg or 3 tablets every 6 hours as needed for pain. Tylenol 1 g every 6 hours as well. Patient is to make a routine postoperative check for 2 weeks. Should she have any concerns prior to this visit she is urged to call the office and be seen prior. Discharge Disposition: HOME SELF-CARE
[2024-07-28 10:17] VITALS: BP 109/73; PULSE 106; RESP 20; TEMP 98.2
--- NOTE | 2024-08-02 07:50 | CDI ---
Documentation Clarification Form Date: 08/02/2024 From: Mila Hu Admit Date: 07/26/2024 05:26:00 AM Patient Name: Erlinda García Visit Number: [id number] Discharge Date: 07/28/2024 11:00:00 AM ATTENTION: The Clinical Documentation Specialists (CDI) and [facility] Coding Staff appreciate your assistance in clarifying documentation. Please respond to the clarification below the line at the bottom and electronically sign. The CDI & [facility] Coding staff will review the response and follow-up if needed. Please note: Queries are made part of the Legal Health Record. If you have any questions, please contact the author of this message via ITS. Doctor/Provider: Natali Nova, Patient is normally anemic during is documented in the 10/27 procedure note. Additional specificity regarding the [type, acuity] of anemia is requested. History/Risk Factors: Repeat CS with rupture of membranes. Clinical indicators: Noteddecrease in hemoglobinis appreciated from 9-6.8. Patient is normallyanemicduringpregnancy. Patient has been taking iron daily throughout thepregnancy. Estimated blood loss, approximately 400 ml. Ambulating without dizziness, denies shortness of breath. Hemoglobin: 9.1, 6.7 Hematocrit: 31.3, 23.1 Treatment: Possibility ofgiving1 unit of packed red blood cellsis discussed and she would like to avoid if she is asymptomatic. Feosol 325 mg daily. Please clarify the type and acuity of anemia: [ ] Anemia of with acute blood loss anemia [ X] Anemia of specify type of anemia: [ ] Unable to determine [ ] Other, please specify iron deficiency MTDD
== END 2024-07-28 11:00 | disposition home or self-care (01) | DRG 540 ==
LOC: 4FBP 05:26
PROVIDERS: ADMIT Obstetrics & Gynecology Obstetrics; ATTEND Obstetrics & Gynecology Obstetrics
PROC: 10D00Z1 Extraction of Products of Conception, Low, Open Approach (ICD-10-PCS; principal; 2024-07-26 12:00)
DX: O34.211 Maternal care for low transverse scar from previous cesarean delivery (principal); O42.92 Full-term premature rupture of membranes, unspecified as to length of time between rupture and onset of labor; F32.A Depression, unspecified; F41.9 Anxiety disorder, unspecified; F43.10 Post-traumatic stress disorder, unspecified; M41.9 Scoliosis, unspecified; O99.02 Anemia complicating childbirth; D50.9 Iron deficiency anemia, unspecified; O99.344 Other mental disorders complicating childbirth; Z37.0 Single live birth; O99.354 Diseases of the nervous system complicating childbirth; Z3A.39 39 weeks gestation of pregnancy; Z91.048 Other nonmedicinal substance allergy status
CPT/HCPCS: 85025; 86850; 86900; 86901